=== PATIENT | male | born 1955 | race Caucasian/White ===

== ENCOUNTER 2016-08-06 14:03 | Emergency (ER) | payer MEDICARE, MEDICAID ==
[2016-02-05 13:26] VITALS: BMI 24.0
[~2016-08-06 14:03] MED LIST: DALIRESP500 MCG PO; HYDROCODONE-APA1 TAB PO; IPRAT-ALBUT 0.5-3 ML UPD; PRILOSEC20 MG PO; PROTONIX40 MG PO; PULMICORT0.25 MG/1 UPD; SINGULAIR10 MG PO; ULTRAM50 MG PO
[2016-08-06 15:07] LABS: BASOPHILS 2.3 % (0.0-2.0); EOSINOPHILS 1.5 % (0-7); HEMATOCRIT 30.6 % (42.0-54.0); HEMOGLOBIN 9.4 g/dL (13.5-17.5); IMMATURE GRANULOCYTES 0.2 % (0-5); LYMPHOCYTES 19.3 % (15-50); MCH 23.6 pg (26.0-34.0); MCHC 30.7 g/dL (31.0-37.0); MCV 76.9 fL (80.0-100.0); MEAN PLATELET VOLUME 8.9 fL (7.4-10.4); MONOCYTES 9.2 % (2-11); NEUTROPHILS 67.5 % (40-80); RBC 3.98 10x6/uL (4.20-6.10); RDW 19.2 % (11.5-14.5); WBC 9.9 10x3/uL (4.8-10.8)
[2016-08-06 15:12] LABS: PLATELET COUNT 371 10x3/uL (130-400)
[2016-08-06 15:28] LABS: ALKALINE PHOSPHATASE 151 U/L (46-116); ALT (SGPT) 40 U/L (10-68); BILIRUBIN - TOTAL 0.93 mg/dL (0.2-1.3); CALC OSMOLALITY 276 mosm/kg (275-300); CALCIUM 8.2 mg/dL (8.5-10.1); CARBON DIOXIDE 26.1 mmol/L (21.0-32.0); CHLORIDE - SERUM 104 mmol/L (98-107); CREATININE - SERUM 0.7 mg/dL (0.6-1.3); GLUCOSE 105 mg/dL (74-106); POTASSIUM - SERUM 4.1 mmol/L (3.5-5.1); PROTEIN - SERUM 7.7 g/dL (6.4-8.2); SODIUM 139 mmol/L (136-145); UREA NITROGEN 9 mg/dL (7-18); eGFR NON AFRICAN AMERICAN > 90 mL/min (90-120)
== END 2016-08-06 17:08 | disposition home or self-care (01) ==
LOC: D.ER 14:03
PROVIDERS: Emergency Medicine
DX: J44.1 Chronic obstructive pulmonary disease with (acute) exacerbation (principal); D64.9 Anemia, unspecified; J45.909 Unspecified asthma, uncomplicated; F17.200 Nicotine dependence, unspecified, uncomplicated

== ENCOUNTER 2016-08-11 21:36 | Inpatient (IN) | payer MEDICARE, MEDICAID ==
[~2016-08-11] VITALS: Ht 167.6 cm; Wt 59.1 kg
[2016-08-11 22:43] LABS: BASOPHILS 1.9 % (0.0-2.0); EOSINOPHILS 3.4 % (0-7); HEMATOCRIT 33.4 % (42.0-54.0); HEMOGLOBIN 10.5 g/dL (13.5-17.5); IMMATURE GRANULOCYTES 0.2 % (0-5); LYMPHOCYTES 26.1 % (15-50); MCH 23.6 pg (26.0-34.0); MCHC 31.4 g/dL (31.0-37.0); MCV 75.2 fL (80.0-100.0); MONOCYTES 11.4 % (2-11); PLATELET COUNT 314 10x3/uL (130-400); RBC 4.44 10x6/uL (4.20-6.10); RDW 19.5 % (11.5-14.5); WBC 6.2 10x3/uL (4.8-10.8)
[2016-08-11 22:56] LABS: ALKALINE PHOSPHATASE 149 U/L (46-116); ALT (SGPT) 40 U/L (10-68); BILIRUBIN - TOTAL 0.78 mg/dL (0.2-1.3); CALC OSMOLALITY 281 mosm/kg (275-300); CALCIUM 8.1 mg/dL (8.5-10.1); CARBON DIOXIDE 21.7 mmol/L (21.0-32.0); CHLORIDE - SERUM 106 mmol/L (98-107); CREATININE - SERUM 0.6 mg/dL (0.6-1.3); GLUCOSE 97 mg/dL (74-106); POTASSIUM - SERUM 3.8 mmol/L (3.5-5.1); PROTEIN - SERUM 8.4 g/dL (6.4-8.2); SODIUM 143 mmol/L (136-145); UREA NITROGEN 3 mg/dL (7-18); eGFR NON AFRICAN AMERICAN > 90 mL/min (90-120)
[2016-08-11 23:11] LABS: CREATINE KINASE 87 UL (21-232); MAGNESIUM - SERUM 1.7 mg/dL (1.8-2.4); PRO BNP 46 pg/mL (0-125)
[2016-08-11 23:13] LABS: TROPONIN-I < 0.017 ng/mL (0.000-0.060)
[2016-08-12 00:44] VITALS: BP 120/79; Ht 167.6 cm; Wt 59.1 kg
[2016-08-12 04:00] VITALS: BP 119/78; BP 99/62
--- NOTE | 2016-08-12 07:00 | NUR ---
PT REC'D FROM SASHA PARRISH. PT RESTING IN BED WITH IN BED. AAOX4. TALKATIVE. NO COMPLAINTS, BED LOW, CALL LIGHT IN REACH, CPOC.
[2016-08-12 08:10] VITALS: BP 100/63
--- NOTE | 2016-08-12 10:05 | NUR ---
MORNING MEDS PASSED. PT UP AMBULATING AROUND ROOM. STATES HE WAS WALKING OFF A CRAMP IN HIS LEFT LEG. EXPLAINED TO PT WHAT LIBRIUM IS AND HOW IT WORKS. PT STATES HE DOESNT THINK HE'LL NEED IT, BUT WILL TAKE IT JUST IN CASE. PT STATES THAT HE KNOWS HE DRINKS TOO MUCH, BUT IT IS BECAUSE HIS RECENTLY LOST HER MOM, 3 MONTHS AGO. STATES THEY WOULD LIKE TO TALK WITH SOMEONE ABOUT SOME INFO ON COUNSELING. TOLD THEM I WOULD HAVE TO SPEAK WITH THE COLOR CONTROL SUPERVISOR ABOUT THAT. NO QUESTION OR CONCERNS VOICED AT THIS TIME. BED LOW, CALL LIGHT IN REACH, WILL CPOC.
--- NOTE | 2016-08-12 11:30 | NUR ---
PT UP AMBULATING THROUGH HALLS. ESCORTED BACK TO ROOM BY SOFY ROBLES. PT ANXIOUS AND UNABLE TO FORM FULL SENTENCES. WHEN BACK IN ROOM PT BECAME INCREASINGLY AGGITATED. SOFY SHERMAN, IN ROOM ASSISTING WITH CARE AND ATTEMPTING TO CALM PT. WAS GOING TO PRN RONAL AND THEN PT SAID, "WAIT! BEFORE YOU GIVE THAT I HAVE TO TELL YOU SOMETHING. PLEASE SHUT THE DOOR. I BROUGHT HIM A BIG BEER AND HE DRANK IT ALL IN AN HOUR. HE BEGGED ME FOR ONE AND I COULDN'T HELP IT. I DIDN'T KNOW IF IT WOULD HURT HIM WITH THE MEDICINE YOU WERE GOING TO GIVE HIM, SO I THOUGHT I SHOULD TELL YOU. I'M PROBABLY IN TROUBLE." I TOLD HER THAT I WOULD HAVE TO TELL THE DOCTOR ABOUT THIS SO WE COULD PLAN HIS CARE ACCORDINGLY. 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 PITTMAN ON FLOOR AND AWARE OF SITUATION. BEER ORDERED QAC AND HS. DAVONN JOSEL ORDERED. BANANA BAGS ORDERED. BED LOW, CALL LIGHT IN REACH, WILL CPOC.
[2016-08-12 12:00] VITALS: BP 110/65
--- NOTE | 2016-08-12 12:00 | NUR ---
PATIENT SITTING UO IN CHAIR. IN PATIENT'S ROOM. PATIENT IS VERY ANXIOUS ACTING AND UNABLE TO SIT STILL IN HIS CHAIR. PATIENT KEEPS APOLOGIZING TO THE STAFF THAT EVERYTHING HAS BEEN "HIS FAULT" AND WHY IS HE "LIKE THIS". PATIENT IS DISORIENTED AT PRESENT TIME TO HIS SITUATION AND WHERE HE IS AT. REORIENTED PATIENT TO PLACE AND SITUATION. VERBALIZED TO PATIENT THE IMPORTANCE OF WHY HE IS HERE IN THE HOSPITAL AND THE IMPORTANCE OF FOLLOWING THE PHYSICIAN'S ORDERS. PATIENT VERBALIZED UNDERSTANDING. PATIENT AGREED TO GET BACK IN HIS BED AND STATED SHE WOULD STAY WITH HIM AT THE PRESENT TIME. AND PATIENT BOTH SMELLED OF ALCOHOL. DENIES BRINGING PATIENT ALCOHOL IN ROOM. PATIENT KEPT STATING, "DO YOU KNOW I KILLED PEOPLE IN [facility]"? KEPT SAYING, "DARYN BE QUIET OR THEY WILL SEDATE YOU". VERBALIZED TO THAT WE ARE NOT HERE TO SEDATE PATIENT, BUT TO HELP HIM THROUGH THIS PROCESS AND TO HELP HIM GET BETTER WHILE HE IS HERE IN THE HOSPITAL. CALL LIGHT IN PATIENT'S REACH. WILL MONITOR.
[2016-08-12 15:37] VITALS: BP 95/53
--- NOTE | 2016-08-12 17:00 | NUR ---
ALERTED BY PT THAT PT HAD PULLED IV OUT IN HIS SLEEP. IV DELAYED AND TUBING DISCONNECTED WITH CATHETER INTACT. WILL ATTEMPT TO RESITE.
--- NOTE | 2016-08-12 18:15 | NUR ---
SUPPLIED PT WITH 1 12OZ CAN OF BUD LIGHT.
--- NOTE | 2016-08-12 18:43 | NUR ---
X3 ATTEMPTS TO RESITE IV. UNSUCCESSFUL. SOFY SHERMAN, X2 UNSUCCESSFUL ATTEMPTS. SOFY ROBLES, X2 ATTEMPTS, SUCCESSFULLY RESITED TO LEFT HAND WITH 22 GUAGE IV CATHETER.
[2016-08-12 18:47] LABS: % SATURATION 3 % (15-55); IRON 16 ug/dl (35-150); TOTAL IRON BIND CAPACITY 444 ug/dl (260-445); UNSAT IRON BIND CAPACITY 428 ug/dl (150-375)
[2016-08-12 20:43] VITALS: BP 114/62
--- NOTE | 2016-08-13 01:31 | NUR ---
PT IV HAD TO BE RESITED D/T HIM PULLING IT OUT. IV WAS RESITED TO LEFT HAND. X 1 ATTEMPT WHICH WAS SUCCESSFUL. NO C/O NOTED OR VOICED. C/L IN REACH AT BEDSIDE.
--- NOTE | 2016-08-13 02:09 | NUR ---
RESTING WITH EYES CLOSED, NO DISTRESS NOTED, CL IN REACH
--- NOTE | 2016-08-13 03:24 | NUR ---
RESTING WELL AT THIS TIME WITH NO C/O NOTED. C/L IN REACH AT BEDSIDE.
[2016-08-13 06:27] LABS: BASOPHILS 0.5 % (0.0-2.0); EOSINOPHILS 1.8 % (0-7); HEMATOCRIT 28.4 % (42.0-54.0); HEMOGLOBIN 8.8 g/dL (13.5-17.5); IMMATURE GRANULOCYTES 0.1 % (0-5); LYMPHOCYTES 10.4 % (15-50); MCH 23.3 pg (26.0-34.0); MCV 75.1 fL (80.0-100.0); MEAN PLATELET VOLUME 9.1 fL (7.4-10.4); MONOCYTES 6.3 % (2-11); NEUTROPHILS 80.9 % (40-80); RBC 3.78 10x6/uL (4.20-6.10); RDW 19.6 % (11.5-14.5)
[2016-08-13 06:28] LABS: PLATELET COUNT 210 10x3/uL (130-400); WBC 8.7 10x3/uL (4.8-10.8)
[2016-08-13 06:38] LABS: ALBUMIN 2.5 g/dL (3.4-5.0); ALKALINE PHOSPHATASE 156 U/L (46-116); ALT (SGPT) 30 U/L (10-68); CALC OSMOLALITY 282 mosm/kg (275-300); CALCIUM 7.8 mg/dL (8.5-10.1); CARBON DIOXIDE 24.9 mmol/L (21.0-32.0); CHLORIDE - SERUM 109 mmol/L (98-107); CREATININE - SERUM 0.7 mg/dL (0.6-1.3); GLUCOSE 92 mg/dL (74-106); POTASSIUM - SERUM 4.1 mmol/L (3.5-5.1); SODIUM 143 mmol/L (136-145); eGFR NON AFRICAN AMERICAN > 90 mL/min (90-120)
[2016-08-13 06:40] LABS: UREA NITROGEN 8 mg/dL (7-18)
--- NOTE | 2016-08-13 07:00 | NUR ---
PT REC'D FROM SASHA HIDALGO. PT RESTING IN BED WITH AMBULATING AROUND ROOM. EYES CLOSED WITH RESP EVEN AND UNLABORED. NO SIGNS OF DISTRESS. REQUESTING TYLENOL AT THIS TIME. STATED, "HE'S HURTING REALLY BAD." I STATED WELL UNTIL HE ASKS FOR IT I CAN'T GIVE HIM ANYTHING, AND I DON'T HAVE AN ORDER FOR IT. BED LOW, CALL LIGHT IN REACH, WILL CPOC.
[2016-08-13 08:04] VITALS: BP 104/68
--- NOTE | 2016-08-13 09:22 | NUR ---
MORNING MEDS PASSED AT THIS TIME. PT SITTING UP ON SIDE OF BED. ASKED PT ABOUT PAIN LEVEL AND HE DID STATE HE HAD A 7/10 PAIN LEVEL THAT WAS ALL OVER HIS BODY. STATED I WOULD TRY AND GET HIM SOMETHING TO HELP HIM RELIEVE HIS PAIN. BED LOW, CALL LIGHT IN REACH, WILL CPOC.
--- NOTE | 2016-08-13 10:15 | NUR ---
PRN TYLENOL ORDERED FOR PAIN OR FEVER. 02/12 PAIN GENERALIZED. WILL REASSESS.
--- NOTE | 2016-08-13 11:44 | NUR ---
PATIENT IN LOW MILAN POSITION RESTING WITH EYES CLOSED. RESPIRATIONS EVEN AND UNLABORED. PRESENT. SIDE RAILS UP X2. BED IN LOW POSITION. CALL LIGHT IN REACH.
[2016-08-13 11:56] VITALS: BP 98/68
[2016-08-13 15:59] VITALS: BP 130/59
--- NOTE | 2016-08-13 18:47 | NUR ---
PRN TYLENOL ADMINISTERED PER PT COMPLAINTS OF 7/10 GENERALIZED PAIN. PT STATES HE IS HAVING A HARD TIME BREATHING, BUT IS SHOWING NO SIGNS OF ANY DISTRESS. EXPIRATORY WHEEZES AUSCULTATED BILAT THROUGHOUT LUNG FABIAN. PT WILL BE RECIEVING BREATHING TX AT 1900 AND TOLD PT THAT.
[2016-08-13 19:00] VITALS: BP 109/69
--- NOTE | 2016-08-13 19:00 | NUR ---
REC'D N BED AWAKE AND ALERT. RESP EVEN AND UNLABORED WITH NO DISTRESS NOTED. CAN VOICE NEEDS AND WANTS. AMBULATE WITH SLOW AND UNSTEAD GAIT. ASSESSMENT COMPLETED. WILL CONTINUE TO OBSERVE FOR NEEDS. C/L UN REACH AT BEDSIDE.
[2016-08-14] VITALS: BP 108/68
[2016-08-14 04:00] VITALS: BP 105/72
[2016-08-14 05:23] LABS: BASOPHILS 0.4 % (0.0-2.0); EOSINOPHILS 2.5 % (0-7); HEMATOCRIT 26.8 % (42.0-54.0); HEMOGLOBIN 8.4 g/dL (13.5-17.5); IMMATURE GRANULOCYTES 0.3 % (0-5); LYMPHOCYTES 16.4 % (15-50); MCH 23.4 pg (26.0-34.0); MCHC 31.3 g/dL (31.0-37.0); MCV 74.7 fL (80.0-100.0); MEAN PLATELET VOLUME 9.3 fL (7.4-10.4); MONOCYTES 9.8 % (2-11); NEUTROPHILS 70.6 % (40-80); PLATELET COUNT 146 10x3/uL (130-400); RBC 3.59 10x6/uL (4.20-6.10); RDW 19.6 % (11.5-14.5); WBC 7.3 10x3/uL (4.8-10.8)
[2016-08-14 06:06] LABS: % SATURATION 39 % (15-55); IRON 143 ug/dl (35-150); TOTAL IRON BIND CAPACITY 366 ug/dl (260-445); UNSAT IRON BIND CAPACITY 223 ug/dl (150-375)
[2016-08-14 06:19] LABS: ALBUMIN 2.4 g/dL (3.4-5.0); ALKALINE PHOSPHATASE 102 U/L (46-116); ALT (SGPT) 24 U/L (10-68); CALC OSMOLALITY 275 mosm/kg (275-300); CARBON DIOXIDE 25.7 mmol/L (21.0-32.0); CHLORIDE - SERUM 106 mmol/L (98-107); CREATININE - SERUM 0.7 mg/dL (0.6-1.3); FERRITIN 27 ng/mL (3-244); GLUCOSE 88 mg/dL (74-106); POTASSIUM - SERUM 3.6 mmol/L (3.5-5.1); PROTEIN - SERUM 6.7 g/dL (6.4-8.2); SODIUM 140 mmol/L (136-145); THYROID STIMULATING HORMONE 0.64 uIU/mL (0.36-3.74); UREA NITROGEN 6 mg/dL (7-18); eGFR NON AFRICAN AMERICAN > 90 mL/min (90-120)
--- NOTE | 2016-08-14 08:00 | NUR ---
PT AWAKE AND ALERT IN ROOM NO ACUTE DISTRESS NOTED VOICES ALL NEEDS TO STAFF. AMBUALTES WELL WITH NO DIFFICULTY. SPOUSE AT SIDE
[2016-08-14 08:07] VITALS: BP 148/82
--- NOTE | 2016-08-14 10:00 | NUR ---
PT TALKED TO THIS NURSE ABOUT BEING AN ALCOHOLIC AND NEEDING TO HAVE HELP TO STOP DRINKING. 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
--- NOTE | 2016-08-14 10:44 | NUR ---
Patient Name: DARYN AGUERO Admission Status: ER Accout number: [id number] Admission Date: 08-11-2016 : 1955 Admission Diagnosis: Attending: ELIZABETH Current LOS: 3 Anticipated DC Date: 08-16-2016 Planned Disposition: Home or Self Care Primary Insurance: [employer] ADV Discharge Planning Comments: CM MET WITH PATIENT REGARDING D/C NEEDS AND PLANS. PATIENT STATED HE LIVES WITH HIS (SIDDHARTHA) AND SHE WILL PICK HIM UP AT DISCHARGE. PATIENT STATED THERE ARE NO STEPS OR STAIRS AT HIS HOME. PATIENT STATED HE IS INDEPENDENT WITH HIS CARE AND HAS NO DME AT HOME. PATIENT DOES NOT HAVE A PCP AND USES [facility] ON [address] FOR HIS PHARMACY. PATIENT IS REFUSING HOME HEALTH. CM WILL CONTINUE TO FOLLOW PATIENT WITH D/C NEEDS AND PLANS. PCP NONE [facility] [address] [phone] SIDDHARTHA (SPOUSE) [phone] Milk Processing Worker: Marlene Shore Is the patient Alert and Oriented? Yes 0 * How many steps to enter\exit or inside your home? 0 0 * PCP NONE 0 * Pharmacy [facility] [address] * Preadmission Environment Home with Family 0 * ADLs Independent 0 * List name and contact numbers for known caregivers / representatives who currently or will assist patient after discharge: SIDDHARTHA (SPOUSE) [phone] * Community resources currently utilized None 0 * Additional services required to return to the preadmission environment? Yes 0 * Can the patient safely return to the preadmission environment? Yes 0 * Has this patient been hospitalized within the prior 30 days at any hospital? No 0 Grand Total: 0
[2016-08-14] MEDS ORDERED: THERAGRAN M [BK1 TAB PO (11:25)
[2016-08-14] MEDS ORDERED: FOLIC ACID1 MG PO (11:25)
[2016-08-14] MEDS ORDERED: THIAMINE HCL50 MG PO (11:25)
[2016-08-14] MEDS ORDERED: LEVAQUIN750 MG PO (11:26)
[2016-08-14] MEDS ORDERED: PREDNISONE10 MG PO (11:27)
--- NOTE | 2016-08-14 11:59 | NUR ---
CM REASSESSMENT NOTE: PATIENT IS DISCHARGING BACK TO [facility] TONDAY BY AMBULANCE TO A SKILLED BED PER JUDY AT [facility]. TRISHA WITH APS WAS NOTIFIED OF DISCHARGE TO [facility].
[2016-08-14 12:09] VITALS: BP 128/86
--- NOTE | 2016-08-14 12:13 | NUR ---
CM REASSESSMENT NOTE: PATIENT IS DISCHARGING HOME TODAY- IS DRIVING HIM HOME. PATIENT HAS REFUSED HOME HEALTH. STATED SHE TAKES CARE OF HIM AND THAT HOME HEALTH IS NOT NEEDED.
--- NOTE | 2016-08-14 13:41 | NUR ---
PT TO BE DISCHARGED AT THIS [facility] PIV D/C WITH TIP INTACT ALL DISCHARGE INSTRUCTIONS GIVEN AND WELL FOLLOW UP APPTS. STATES UNDERSTANDING
== END 2016-08-14 14:16 | disposition home or self-care (01) | DRG 195 ==
LOC: D.ER 21:36 → D.MS 23:48
PROVIDERS: Emergency Medicine; ADMIT Family Medicine Adult Medicine
DX: J18.9 Pneumonia, unspecified organism (principal); F10.129 Alcohol abuse with intoxication, unspecified; Y90.8 Blood alcohol level of 240 mg/100 ml or more; R41.82 Altered mental status, unspecified; J43.9 Emphysema, unspecified; D64.9 Anemia, unspecified

== ENCOUNTER 2016-08-22 03:25 | Emergency (ER) | payer MEDICARE, MEDICAID ==
[2016-08-12 00:44] VITALS: BMI 21.0
[~2016-08-22 03:25] MED LIST changes: +FOLIC ACID1 MG PO; +LEVAQUIN750 MG PO; +PREDNISONE10 MG PO; +THERAGRAN M [BK1 TAB PO; +THIAMINE HCL50 MG PO
[2016-08-22 04:12] LABS: BASOPHILS 1.4 % (0.0-2.0); EOSINOPHILS 5.3 % (0-7); HEMATOCRIT 28.2 % (42.0-54.0); HEMOGLOBIN 8.8 g/dL (13.5-17.5); IMMATURE GRANULOCYTES 0.2 % (0-5); LYMPHOCYTES 24.7 % (15-50); MCH 23.7 pg (26.0-34.0); MCHC 31.2 g/dL (31.0-37.0); MCV 75.8 fL (80.0-100.0); MEAN PLATELET VOLUME 8.9 fL (7.4-10.4); NEUTROPHILS 51.4 % (40-80); PLATELET COUNT 133 10x3/uL (130-400); RBC 3.72 10x6/uL (4.20-6.10); RDW 21.5 % (11.5-14.5); WBC 6.2 10x3/uL (4.8-10.8)
[2016-08-22 04:21] LABS: CALC OSMOLALITY 279 mosm/kg (275-300); CALCIUM 8.4 mg/dL (8.5-10.1); CARBON DIOXIDE 25.7 mmol/L (21.0-32.0); CHLORIDE - SERUM 107 mmol/L (98-107); CREATININE - SERUM 0.8 mg/dL (0.6-1.3); GLUCOSE 88 mg/dL (74-106); POTASSIUM - SERUM 3.5 mmol/L (3.5-5.1); SODIUM 142 mmol/L (136-145); UREA NITROGEN 6 mg/dL (7-18); eGFR NON AFRICAN AMERICAN > 90 mL/min (90-120)
== END 2016-08-22 06:19 | disposition home or self-care (01) ==
LOC: D.ER 03:25
PROVIDERS: Emergency Medicine
DX: S00.93XA Contusion of unspecified part of head, initial encounter (principal); W22.8XXA Striking against or struck by other objects, initial encounter; Y93.89 Activity, other specified; Y92.89 Other specified places as the place of occurrence of the external cause; S01.01XA Laceration without foreign body of scalp, initial encounter; F10.129 Alcohol abuse with intoxication, unspecified; J45.909 Unspecified asthma, uncomplicated; J44.9 Chronic obstructive pulmonary disease, unspecified; F17.200 Nicotine dependence, unspecified, uncomplicated

== ENCOUNTER 2016-12-07 17:09 | Emergency (ER) | payer MEDICARE, MEDICAID ==
[2016-08-12 00:44] VITALS: BMI 21.0
[2016-12-07 17:41] LABS: UDS - AMPHET NEGATIVE QUAL (NEGATIVE); UDS - BARB NEGATIVE QUAL (NEGATIVE); UDS - BENZO NEGATIVE QUAL (NEGATIVE); UDS - COCAINE NEGATIVE QUAL (NEGATIVE); UDS - METH NEGATIVE QUAL (NEGATIVE); UDS - OPIATE NEGATIVE QUAL (NEGATIVE); UDS - PCP NEGATIVE QUAL (NEGATIVE); UDS - THC NEGATIVE QUAL (NEGATIVE)
[2016-12-07 17:41] LABS: APPEARANCE HAZY (CLEAR); COLOR YELLOW (YELLOW); LEUKOCYTE ESTERASE 1+ (NEGATIVE)
[2016-12-07 17:42] LABS: BILIRUBIN NEGATIVE (NEGATIVE); GLUCOSE NEGATIVE (NEGATIVE); KETONE NEGATIVE (NEGATIVE); NITRITE NEGATIVE (NEGATIVE); PROTEIN TRACE mg/dL (NEGATIVE); UROBILINOGEN NORMAL (NORMAL)
[2016-12-07 17:45] LABS: BACTERIA MODERATE /hpf (NONE SEEN); EPITHELIAL CELLS 0-5 /hpf (0-5); RED CELLS - URINE 0-5 /hpf (0-5)
[2016-12-07 17:57] LABS: BASOPHILS 2.6 % (0-2); EOSINOPHILS 2.1 % (0-7); HEMATOCRIT 32.5 % (42.0-54.0); HEMOGLOBIN 10.1 g/dL (13.5-17.5); IMMATURE GRANULOCYTES 0.3 % (0-5); LYMPHOCYTES 20.5 % (15-50); MCH 23.5 pg (26.0-34.0); MCHC 31.1 g/dL (31.0-37.0); MCV 75.6 fL (80.0-100.0); MEAN PLATELET VOLUME 9.5 fL (7.4-10.4); MONOCYTES 11.3 % (2-11); NEUTROPHILS 63.2 % (40-80); PLATELET COUNT 141 10x3/uL (130-400); RDW 19.4 % (11.5-14.5); WBC 7.8 10x3/uL (4.8-10.8)
[2016-12-07 18:12] LABS: ALBUMIN 2.7 g/dL (3.4-5.0); ALKALINE PHOSPHATASE 141 U/L (46-116); ALT (SGPT) 41 U/L (10-68); BILIRUBIN - TOTAL 1.56 mg/dL (0.2-1.3); CALC OSMOLALITY 276 mosm/kg (275-300); CALCIUM 8.1 mg/dL (8.5-10.1); CARBON DIOXIDE 25.5 mmol/L (21.0-32.0); CHLORIDE - SERUM 105 mmol/L (98-107); CREATININE - SERUM 0.7 mg/dL (0.6-1.3); GLUCOSE 94 mg/dL (74-106); POTASSIUM - SERUM 4.2 mmol/L (3.5-5.1); PROTEIN - SERUM 8.6 g/dL (6.4-8.2); SODIUM 140 mmol/L (136-145); UREA NITROGEN 7 mg/dL (7-18); eGFR NON AFRICAN AMERICAN > 90 mL/min (90-120)
== END 2016-12-07 18:54 | disposition home or self-care (01) ==
LOC: D.ER 17:09
PROVIDERS: Emergency Medicine
DX: G40.409 Other generalized epilepsy and epileptic syndromes, not intractable, without status epilepticus (principal); Z91.14 Patient's other noncompliance with medication regimen; F10.129 Alcohol abuse with intoxication, unspecified; D64.9 Anemia, unspecified; J44.9 Chronic obstructive pulmonary disease, unspecified

== ENCOUNTER 2016-12-10 16:41 | Emergency (ER) | payer MEDICARE, MEDICAID ==
[2016-08-12 00:44] VITALS: BMI 21.0
[2016-12-10 18:01] LABS: BASOPHILS 1.7 % (0-2); EOSINOPHILS 2.4 % (0-7); HEMATOCRIT 29.6 % (42.0-54.0); HEMOGLOBIN 9.2 g/dL (13.5-17.5); IMMATURE GRANULOCYTES 0.4 % (0-5); LYMPHOCYTES 20.3 % (15-50); MCH 23.2 pg (26.0-34.0); MCHC 31.1 g/dL (31.0-37.0); MCV 74.7 fL (80.0-100.0); MEAN PLATELET VOLUME 9.3 fL (7.4-10.4); MONOCYTES 9.1 % (2-11); NEUTROPHILS 66.1 % (40-80); PLATELET COUNT 123 10x3/uL (130-400); RBC 3.96 10x6/uL (4.20-6.10); RDW 19.3 % (11.5-14.5); WBC 8.3 10x3/uL (4.8-10.8)
[2016-12-10 18:15] LABS: ALBUMIN 2.6 g/dL (3.4-5.0); ALKALINE PHOSPHATASE 160 U/L (46-116); ALT (SGPT) 46 U/L (10-68); BILIRUBIN - TOTAL 1.17 mg/dL (0.2-1.3); CALC OSMOLALITY 282 mosm/kg (275-300); CALCIUM 7.6 mg/dL (8.5-10.1); CARBON DIOXIDE 27.2 mmol/L (21.0-32.0); CHLORIDE - SERUM 108 mmol/L (98-107); CREATININE - SERUM 0.8 mg/dL (0.6-1.3); GLUCOSE 101 mg/dL (74-106); POTASSIUM - SERUM 3.9 mmol/L (3.5-5.1); PROTEIN - SERUM 8.2 g/dL (6.4-8.2); SODIUM 143 mmol/L (136-145); UREA NITROGEN 7 mg/dL (7-18); eGFR NON AFRICAN AMERICAN > 90 mL/min (90-120)
[2016-12-10 18:21] LABS: MAGNESIUM - SERUM 1.7 mg/dL (1.8-2.4)
== END 2016-12-10 21:05 | disposition home or self-care (01) ==
LOC: D.ER 16:41
PROVIDERS: Emergency Medicine
DX: F10.129 Alcohol abuse with intoxication, unspecified (principal); F17.200 Nicotine dependence, unspecified, uncomplicated; J44.9 Chronic obstructive pulmonary disease, unspecified

== ENCOUNTER 2017-01-19 05:30 | Inpatient (IN) | payer MEDICARE, MEDICAID ==
[2017-01-19] VITALS (39 sets, daily range): BP systolic 89–129; BP diastolic 49–91; BMI 24.6
[~2017-01-19] VITALS: Ht 167.6 cm; Wt 95.7 kg
[2017-01-19 06:10] LABS: UDS - AMPHET NEGATIVE QUAL (NEGATIVE); UDS - BARB NEGATIVE QUAL (NEGATIVE); UDS - BENZO NEGATIVE QUAL (NEGATIVE); UDS - COCAINE NEGATIVE QUAL (NEGATIVE); UDS - METH NEGATIVE QUAL (NEGATIVE); UDS - OPIATE NEGATIVE QUAL (NEGATIVE); UDS - PCP NEGATIVE QUAL (NEGATIVE); UDS - THC NEGATIVE QUAL (NEGATIVE)
[2017-01-19 06:24] LABS: APPEARANCE HAZY (CLEAR); COLOR DK YELLOW (YELLOW); LEUKOCYTE ESTERASE 1+ (NEGATIVE); SPECIFIC GRAVITY 1.015 (1.005-1.020)
[2017-01-19 06:25] LABS: BILIRUBIN NEGATIVE (NEGATIVE); GLUCOSE NEGATIVE (NEGATIVE); KETONE NEGATIVE (NEGATIVE); NITRITE NEGATIVE (NEGATIVE); PROTEIN NEGATIVE (NEGATIVE); UROBILINOGEN NORMAL (NORMAL)
[2017-01-19 06:27] LABS: BACTERIA MODERATE /hpf (NONE SEEN); MUCUS <1+ /lpf (NONE SEEN); RED CELLS - URINE 0-5 /hpf (0-5)
[2017-01-19 06:29] LABS: HEMATOCRIT 23.6 % (42.0-54.0); MCHC 30.9 g/dL (31.0-37.0); RBC 2.81 10x6/uL (4.20-6.10); RDW 28.7 % (11.5-14.5); WBC 36.7 10x3/uL (4.8-10.8)
[2017-01-19 06:30] LABS: HEMOGLOBIN 7.3 g/dL (13.5-17.5); PLATELET COUNT 91 10x3/uL (130-400)
[2017-01-19 06:48] LABS: ALBUMIN 1.7 g/dL (3.4-5.0); ANION GAP 21.4 mmol/L (8-16); BILIRUBIN - TOTAL 7.54 mg/dL (0.2-1.3); CALCIUM 7.1 mg/dL (8.5-10.1); POTASSIUM - SERUM 5.4 mmol/L (3.5-5.1); PROTEIN - SERUM 6.2 g/dL (6.4-8.2)
[2017-01-19 06:50] LABS: LYMPHOCYTES 5 % (15-50); MONOCYTES 3 % (2-11); NEUTROPHILS 90 % (40-80); PLATELET ESTIMATE DECREASED; POLYCHROMASIA OCC
[2017-01-19 06:59] LABS: MAGNESIUM - SERUM 1.4 mg/dL (1.8-2.4)
[2017-01-19 07:30] LABS: APTT 21.3 SECONDS (22.8-39.4); INR 2.35 (0.85-1.17); PROTIME 25.8 SECONDS (11.6-15.0)
--- NOTE | 2017-01-19 12:00 | NUR ---
PT ARRIVED TO UNIT AT THIS TIME PT IS SEDATED AND ON VENT. MOVES EXTREMITIES. NOTED HAS BLACK LIQUID STOOL. WILL CALL PHYSICIANS TO NOTIFY OF PT ARRIVAL.
--- NOTE | 2017-01-19 12:17 | NUR ---
CALLED DR LUNSFORD TO NOTIFY THAT PT IS HER PER ORDERS.
--- NOTE | 2017-01-19 12:50 | NUR ---
PTS HERE. UPDATE GIVEN. CONSENTS SIGNED FOR EGD WITH TIVA. WILL CONTINUE PLAN OF CARE.
--- NOTE | 2017-01-19 13:11 | NUR ---
NOTED DR DESAI AND DR RILEY HAVE BOTH SPOKEN WITH PTS . ORDERS RECIEVED.
[2017-01-19 13:41] LABS: BASOPHILS 0.2 % (0-2); EOSINOPHILS 0 % (0-7); IMMATURE GRANULOCYTES 0.5 % (0-5); LYMPHOCYTES 8.2 % (15-50); MCH 26.9 pg (26.0-34.0); MCHC 32.3 g/dL (31.0-37.0); MCV 83.3 fL (80.0-100.0); MONOCYTES 2.1 % (2-11); RBC 2.64 10x6/uL (4.20-6.10); RDW 23.2 % (11.5-14.5)
[2017-01-19 13:46] LABS: WBC 9.4 10x3/uL (4.8-10.8)
[2017-01-19 13:48] LABS: HEMOGLOBIN 7.1 g/dL (13.5-17.5); PLATELET COUNT 46 10x3/uL (130-400)
--- NOTE | 2017-01-19 14:07 | NUR ---
PATIENT WAS ADMITTED THRU THE ER THIS AM. THE WAS QUITE DISTRAUGHT. CM UNABLE TO SPEAK WITH HER DURING THE INITIAL VISIT.
--- NOTE | 2017-01-19 14:23 | NUR ---
SPOKE WITH DR HUNT NOTED ORDER FOR H&H Q6H AND IF HCT IS BELOW 28 TO GIVE 1U PRBC AND IF HCT IS BELOW 26 TO GIVE 2U PRBC.
--- NOTE | 2017-01-19 14:53 | NUR ---
SPOKE WITH DR PITTMAN, NOTED ORDER FOR PRN LEVOFED. TITRATE TO KEEP MAP ABOVE 60.
--- NOTE | 2017-01-19 15:02 | NUR ---
OGT PLACED. WAS REMOVED DURING EGD AND REQUIRED REPLACING. PLACEMENT VERIFICATION VIA AUSCULTATION AND SUCTION. STAT CHEST XRAY ORDERED AT THIS TIE PER DR HUNT ORDERS FOR VERIFY PLACEMENT. WILL CONTINUE PLAN OF CARE.
--- NOTE | 2017-01-19 16:29 | NUR ---
CAUTERIZED AVM WITH GOLD PROBE.
--- NOTE | 2017-01-19 17:37 | NUR ---
TOTAL BED CHANGE NOTED AT THIS TIME, INCONTINENT BOWEL MOVEMENT. LOOSE BLACK BM. MALONE CARE PROVIDED VIA TOTAL ASSIST X 2 PERSON. ALSO AT THIS TIME CVL DRESSING CHANGE PROVIDED. WILL CONTINUE PLAN OF CARE.
--- NOTE | 2017-01-19 19:00 | NUR ---
SHIFT ASSESSMENT COMPLETE, SEE FLOWSHEET. PATIENT SEDATED AND ON VENT, WILL OPEN EYEN TO PAINFUL STIMULI. VSS, PATIENT ON VASOPRESSORS FOR BP SUPPORT-SEE IV DRIPS. PATIENT RECEIVING UNIT OF PRBC'S AT THIS TIME. HAVING DARK BLOODY STOOLS, WILL MONITOR.
--- NOTE | 2017-01-19 20:30 | NUR ---
PATIENT HAD DARK BLOODY STOOL, LINEN CHANGED AND CLEANED UP.
--- NOTE | 2017-01-19 21:00 | NUR ---
FAMILY AT BEDSIDE, UPDATE GIVEN. CALLED, UPDATE GIVEN.
--- NOTE | 2017-01-19 21:30 | NUR ---
UNIT OF PRBC COMPLETE, WILL FLUSH AND RECHECK LAB LEVELS.
--- NOTE | 2017-01-19 23:00 | NUR ---
REASSESSMENT COMPLETE, SEE FLOWSHEET FOR DETAILS. VSS.
[2017-01-20] VITALS (71 sets, daily range): BP systolic 91–128; BP diastolic 58–90; Ht 167.6 cm; Wt 95.7 kg
--- NOTE | 2017-01-20 00:30 | NUR ---
PATIENT HAD LARGE DARK BLOODY STOOL. BATH GIVEN AND COMPLETE LINEN CHANGE PERFORMED.
--- NOTE | 2017-01-20 03:00 | NUR ---
REASSESSMENT COMPLETE, NO ACUTE CHANGES, SEE FLOWSHEET
[2017-01-20 04:47] LABS: BASOPHILS 0.1 % (0-2); EOSINOPHILS 0.2 % (0-7); IMMATURE GRANULOCYTES 0.9 % (0-5); LYMPHOCYTES 5.7 % (15-50); MCH 27.8 pg (26.0-34.0); MCHC 32.9 g/dL (31.0-37.0); MCV 84.5 fL (80.0-100.0); MONOCYTES 4.2 % (2-11); NEUTROPHILS 88.9 % (40-80); RDW 20.2 % (11.5-14.5)
[2017-01-20 04:55] LABS: HEMOGLOBIN 10.2 g/dL (13.5-17.5); PLATELET COUNT 49 10x3/uL (130-400); RBC 3.67 10x6/uL (4.20-6.10); WBC 11.8 10x3/uL (4.8-10.8)
[2017-01-20 05:03] LABS: INR 1.55 (0.85-1.17); PROTIME 18.5 SECONDS (11.6-15.0)
[2017-01-20 05:19] LABS: ALKALINE PHOSPHATASE 91 U/L (46-116); ALT (SGPT) 27 U/L (10-68); AMYLASE - SERUM 42 U/L (25-115); CHLORIDE - SERUM 109 mmol/L (98-107); CKMB 1.2 U/L (0.0-3.6); LIPASE 192 U/L (73-393); PHOSPHOROUS 3.2 mg/dL (2.5-4.9); PRO BNP 335 pg/mL (0-125); PROTEIN - SERUM 6.2 g/dL (6.4-8.2); SODIUM 142 mmol/L (136-145); THYROID STIMULATING HORMONE 0.25 uIU/mL (0.36-3.74); TROPONIN-I 0.026 ng/mL (0.000-0.060); UREA NITROGEN 36 mg/dL (7-18)
[2017-01-20 05:20] LABS: CALC OSMOLALITY 296 mosm/kg (275-300); CREATININE - SERUM 1.1 mg/dL (0.6-1.3); GLUCOSE 201 mg/dL (74-106); MAGNESIUM - SERUM 2.9 mg/dL (1.8-2.4); POTASSIUM - SERUM 3.1 mmol/L (3.5-5.1); eGFR NON AFRICAN AMERICAN 73 mL/min (90-120)
[2017-01-20 05:21] LABS: CALCIUM 6.7 mg/dL (8.5-10.1)
--- NOTE | 2017-01-20 05:39 | NUR ---
PATIENTS CORRECTED CALCIUM 8.3
--- NOTE | 2017-01-20 06:00 | NUR ---
PATIENT HAD MEDIUM BM, DARK BLOODY STOOL. CLEANED UP AND LINENS CHANGED.
--- NOTE | 2017-01-20 08:15 | NUR ---
NO ACUTE DISTRESS NOTED. PT DOES NOT FOLLOW SIMPLE COMMANDS. LEVOFED TITRATED TO MEET GUIDELINE PARAMETERS. TURNED Q2H. WILL CONTINUE PLAN OF CARE.
--- NOTE | 2017-01-20 10:17 | NUR ---
SPOKEN WITH PTS AND FAMILY (MOM, DAD, BROTHER) AND THE FAMILY HAVE DECIDED TOGETHER TO MAKE PT A DNR; HOWEVER, THEY STILL WANT TO CONTINUE CURRENT MEDICAL CARE SUCH VENT. THEY WISH TO HAVE AN EEG DONE ON SUNDAY AND WISH TO MAKE ANY FURTHER DECISIONS BASED ON THOSE RESULTS. DR PITTMAN HAS ALSO SPOKEN WITH FAMILY AND PTS AT THIS TIME. WILL RESPECT WISHES.
--- NOTE | 2017-01-20 12:43 | NUR ---
FAMILY AT BEDSIDE OF PT. NO ACUTE DISTRESS NOTED. NO CHANGE. PT TURNED Q2H. WILL CONTINUE PLAN OF CARE.
--- NOTE | 2017-01-20 14:44 | NUR ---
INCONTINENT BOWEL MOVEMENT NOTED AT THIS TIME, LOOSE DARK GREEN. MALONE CARE PROVIDED VIA TOTAL ASSIST X 2 PERSON WITH PARTIAL LINEN CHANGE. NO ACUTE DISTRESS NOTED. WILL CONTINUE PLAN OF CARE.
--- NOTE | 2017-01-20 16:45 | NUR ---
NO ACUTE DISTRESS NOTED. NO CHANGE. PT NOTED DOES NOT FOLLOW SIMPLE COMMANDS, BUT DOES MOVE EXTREMITIES AT TIMES. WILL CONTINUE PLAN OF CARE.
--- NOTE | 2017-01-20 18:12 | NUR ---
INCONTINENT BOWEL MOVEMENT NOTED AT THIS TIME. MALONE CARE PROVIDED VIA TOTAL ASSIST X 2 PERSON. PT TURNED Q2H. NO ACUTE DISTRESS NOTED. WILL CONTINUE PLAN OF CARE.
--- NOTE | 2017-01-20 19:00 | NUR ---
SHIFT ASSESSMENT COMPLETE, SEE FLOWSHEET FOR DETIALS. PATIENT SEDATED AND ON VENT. VSS. RR EVEN AND NONLABORED. S1S2. MALONE DRAINING TO GRAVITY. VASOPRESSORS FOR BP SUPPORT, SEE IV FLOWSHEET. ORAL CARE GIVEN.
--- NOTE | 2017-01-20 21:00 | NUR ---
FAMILY AT BEDSIDE, UPDATE GIVEN.
[2017-01-20 22:02] LABS: BASOPHILS 0.3 % (0-2); EOSINOPHILS 1.4 % (0-7); HEMATOCRIT 28.8 % (42.0-54.0); HEMOGLOBIN 9.5 g/dL (13.5-17.5); IMMATURE GRANULOCYTES 0.5 % (0-5); LYMPHOCYTES 8.5 % (15-50); MONOCYTES 8.7 % (2-11); NEUTROPHILS 80.6 % (40-80); PLATELET COUNT 51 10x3/uL (130-400); RBC 3.39 10x6/uL (4.20-6.10); RDW 21.2 % (11.5-14.5); WBC 10.4 10x3/uL (4.8-10.8)
--- NOTE | 2017-01-20 22:15 | NUR ---
HEART RATE DROPPED TO UPPER 40'S. SEDATION DECREASED. HR REMAINED BELOW 50. DOPAMINE STARTED, FAMILY NOTIFIED WITH CHANGE IN PATIENTS CONDITION.
[2017-01-20 22:19] LABS: ALBUMIN 1.8 g/dL (3.4-5.0); ALKALINE PHOSPHATASE 84 U/L (46-116); ALT (SGPT) 23 U/L (10-68); BILIRUBIN - TOTAL 5.56 mg/dL (0.2-1.3); CARBON DIOXIDE 20.1 mmol/L (21.0-32.0); GLUCOSE 161 mg/dL (74-106); POTASSIUM - SERUM 3.2 mmol/L (3.5-5.1); PROTEIN - SERUM 5.8 g/dL (6.4-8.2); SODIUM 147 mmol/L (136-145)
[2017-01-20 22:21] LABS: CALC OSMOLALITY 299 mosm/kg (275-300); CREATININE - SERUM 0.6 mg/dL (0.6-1.3); UREA NITROGEN 26 mg/dL (7-18); eGFR NON AFRICAN AMERICAN > 90 mL/min (90-120)
[2017-01-20 22:22] LABS: CALCIUM 6.4 mg/dL (8.5-10.1); CHLORIDE - SERUM 117 mmol/L (98-107)
--- NOTE | 2017-01-20 23:00 | NUR ---
HEART RATE HAS INCREASED, BP STABLE. DOPAMINE OFF, LEVOPHED WEANED DOWN. REASSESSMENT COMPLETE. NO OTHER ACUTE CHANGES. SEE FLOWSHEET.
[2017-01-21] VITALS (96 sets, daily range): BP systolic 94–130; BP diastolic 58–91
--- NOTE | 2017-01-21 00:40 | NUR ---
PATIENT INCONTINENT OF STOOL. NO BLOOD SEEN IN BM. PATIENT CLEANED AND LINENS CHANGED.
--- NOTE | 2017-01-21 03:00 | NUR ---
REASSESSMENT COMPLETE, NO ACUTE CHANGES.
[2017-01-21 04:52] LABS: BASOPHILS 0.3 % (0-2); HEMATOCRIT 31.2 % (42.0-54.0); HEMOGLOBIN 10.2 g/dL (13.5-17.5); IMMATURE GRANULOCYTES 0.5 % (0-5); LYMPHOCYTES 7.9 % (15-50); MCHC 32.7 g/dL (31.0-37.0); MCV 85.7 fL (80.0-100.0); MONOCYTES 10.5 % (2-11); NEUTROPHILS 78.8 % (40-80); PLATELET COUNT 60 10x3/uL (130-400); RBC 3.64 10x6/uL (4.20-6.10); RDW 21.4 % (11.5-14.5); WBC 11.7 10x3/uL (4.8-10.8)
[2017-01-21 05:03] LABS: CALC OSMOLALITY 299 mosm/kg (275-300); CARBON DIOXIDE 21.2 mmol/L (21.0-32.0); CREATININE - SERUM 0.7 mg/dL (0.6-1.3); GLUCOSE 162 mg/dL (74-106); SODIUM 147 mmol/L (136-145); UREA NITROGEN 24 mg/dL (7-18); eGFR NON AFRICAN AMERICAN > 90 mL/min (90-120)
[2017-01-21 05:04] LABS: POTASSIUM - SERUM 3.8 mmol/L (3.5-5.1)
[2017-01-21 05:05] LABS: CALCIUM 6.8 mg/dL (8.5-10.1); CHLORIDE - SERUM 117 mmol/L (98-107)
--- NOTE | 2017-01-21 05:10 | NUR ---
CORRECTED CALIUM 8.5
--- NOTE | 2017-01-21 05:30 | NUR ---
PATIENT HAD SMALL AMOUNT OF DIARRHEA. CLEANED UP AND LINEN CHANGED.
--- NOTE | 2017-01-21 08:54 | NUR ---
TOTAL BED CHANGE PROVIDED AT THIS TIME, INCONTINENT BOWEL MOVEMENT. STOOL SPECIMEM COLLECTED FOR CDIFF TEST. ALSO AT THIS TIME RECTAL TUBE PLACED FOR SKIN PRESERVATION. PT TURNED Q2H. WILL CONTINUE PLAN OF CARE.
--- NOTE | 2017-01-21 09:33 | NUR ---
DR RESENDIZ AND DR PITTMAN HAVE SPOKEN WITH PTS FAMILY (MOM, DAD, BROTHER) AT BEDSIDE AT THIS TIME. ALL QUESTIONS AND CONCERNS ADRESSED. NO ACUTE DISTRESS NOTED. WILL CONTINUE PLAN OF CARE.
--- NOTE | 2017-01-21 11:10 | NUR ---
NO ACUTE DISTRESS NOTED. NO CHANGE. PT TURNED Q2H. WILL CONTINUE PLAN OF CARE.
--- NOTE | 2017-01-21 13:36 | NUR ---
INCONTINENT BOWEL MOVEMENT NOTED AT THIS TIME WHICH LEAKED AROUND RECTAL TUBE. NOTED RECTAL TUBE IS IN PLACE. MALONE CARE AND ANDREW CARE PROVIDED VIA TOTAL ASSIST X 2 PERSON. PT TURNED Q2H. NO ACUTE DISTRESS NOTED. WILL CONTINUE PLAN OF CARE.
--- NOTE | 2017-01-21 15:28 | NUR ---
FAMILY AT BEDSIDE. UPDATE GIVEN. NO ACUTE DISTRESS NOTED. WILL CONTINUE PLAN OF CARE.
--- NOTE | 2017-01-21 15:30 | NUR ---
NO CHANGE. PT TURNED Q2H. MOVES EXTREMITIES AT TIMES, DOES NOT FOLLOW COMMANDS. NO ACUTE DISTRESS NOTED. WILL CONTINUE PLAN OF CARE.
--- NOTE | 2017-01-21 17:29 | NUR ---
NO ACUTE DISTRESS NOTED AT THIS TIME. NO CHANGE. PT TURNED Q2H. WILL CONTINUE PLAN OF CARE.
--- NOTE | 2017-01-21 19:00 | NUR ---
REPORT RECEIVED. SEDATED ON VENT, SEE FLOW SHEET FOR VENT SETTINGS. BLOOD DRAWN FOR STAT H&H. OGT IN PLACE TO LIS. ETT IN PLACE. TELEMETRY MONITORING SINUS RHYTHM RATE OF 69. R IJ CVL PATENT SEE FLOW SHEET FOR IV DRIPS. MALONE CATHETER IN PLACE. RECTAL TUBE IN PLACE. SCDs IN PLACE. HOB 30 DEGREES. BED IN LOWEST POSITION. SEE FLOW SHEET FOR COMPLETE ASSESSMENT.
[2017-01-21 19:42] LABS: HEMATOCRIT 31.3 % (42.0-54.0)
--- NOTE | 2017-01-21 21:00 | NUR ---
NO VISITORS AT THIS TIME. VSS. NO CHANGES NOTED. WILL CONTINUE TO MONITOR.
--- NOTE | 2017-01-21 23:00 | NUR ---
REASSESSMENT COMPLETE, SEE FLOW SHEET FOR DETAILS. NO CHANGES NOTED. VSS. WILL CONTINUE TO MONITOR.
[2017-01-22] VITALS (57 sets, daily range): BP systolic 89–116; BP diastolic 63–82
--- NOTE | 2017-01-22 01:00 | NUR ---
SEDATED ON VENT. VSS. BED IN LOWEST POSITION. WILL CONTINUE TO MONITOR.
--- NOTE | 2017-01-22 03:00 | NUR ---
REASSESSMENT COMPLETE, SEE FLOW SHEET FOR DETAILS. VSS. WILL CONTINUE TO MONITOR. TITRATING LEVOPHED TO MAINTAIN MAP >60. BED IN LOWEST POSITION.
--- NOTE | 2017-01-22 05:00 | NUR ---
NO CHANGES NOTED. WILL CONTINUE TO MONITOR. BED IN LOWEST POSITION.
[2017-01-22 05:01] LABS: BASOPHILS 0.4 % (0-2); EOSINOPHILS 1.7 % (0-7); HEMATOCRIT 25.9 % (42.0-54.0); IMMATURE GRANULOCYTES 0.3 % (0-5); LYMPHOCYTES 9.4 % (15-50); MCH 27.1 pg (26.0-34.0); MCHC 30.9 g/dL (31.0-37.0); MEAN PLATELET VOLUME 10.2 fL (7.4-10.4); MONOCYTES 17.1 % (2-11); NEUTROPHILS 71.1 % (40-80); PLATELET COUNT 65 10x3/uL (130-400); RBC 2.95 10x6/uL (4.20-6.10); RDW 22.4 % (11.5-14.5); WBC 14.3 10x3/uL (4.8-10.8)
[2017-01-22 05:02] LABS: MCV 87.8 fL (80.0-100.0)
[2017-01-22 05:21] LABS: CARBON DIOXIDE 19.2 mmol/L (21.0-32.0); CREATININE - SERUM 0.8 mg/dL (0.6-1.3); GLUCOSE 132 mg/dL (74-106); POTASSIUM - SERUM 3.6 mmol/L (3.5-5.1); SODIUM 145 mmol/L (136-145); eGFR NON AFRICAN AMERICAN > 90 mL/min (90-120)
[2017-01-22 05:23] LABS: CALC OSMOLALITY 292 mosm/kg (275-300); UREA NITROGEN 17 mg/dL (7-18)
[2017-01-22 05:24] LABS: CALCIUM 6.4 mg/dL (8.5-10.1); CHLORIDE - SERUM 119 mmol/L (98-107)
--- NOTE | 2017-01-22 06:05 | NUR ---
NO CHANGES NOTED. NO VISITORS AT THIS TIME. TITRATING LEVOPHED TO MAINTAIN MAP >60. BED IN LOWEST POSITION. WILL CONTINUE TO MONITOR.
[2017-01-22 06:08] LABS: ALBUMIN 1.7 g/dL (3.4-5.0)
[2017-01-22 06:14] LABS: BASOPHILS 1.9 % (0-2); EOSINOPHILS 1.9 % (0-7); LYMPHOCYTES 8.4 % (15-50); MCHC 31.9 g/dL (31.0-37.0); MCV 87.9 fL (80.0-100.0); MONOCYTES 18.9 % (2-11); NEUTROPHILS 64.9 % (40-80); RDW 22.6 % (11.5-14.5); WBC 13.4 10x3/uL (4.8-10.8)
[2017-01-22 06:15] LABS: HEMATOCRIT 32.6 % (42.0-54.0); HEMOGLOBIN 10.4 g/dL (13.5-17.5); PLATELET COUNT 50 10x3/uL (130-400); RBC 3.71 10x6/uL (4.20-6.10)
--- NOTE | 2017-01-22 09:35 | NUR ---
Nutrition follow-up/consult: Noted order from Dr. Jimenez to start TF Chart reviewed Pt remains intubated. Labs noted RDN will order Vital 1.0 silvia to begin @ 20 ml/hr with gradual increase to goal rate of 75 ml/hr RDN following.
--- NOTE | 2017-01-22 13:55 | NUR ---
* Is the patient Alert and Oriented? No 0 * PCP None 0 * Pharmacy [facility] on [address] * Preadmission Environment Home with Family 0 * List name and contact numbers for known caregivers / representatives who currently or will assist patient after discharge: Brother - Patrick [phone] Parents - Marla [phone] 0 * Has this patient been hospitalized within the prior 30 days at any hospital? No 01/22/2017 13:55 DCP: Discharge Planning Patient Name: DARYN AGUERO Admission Status: ER Accout number: [id number] Admission Date: 01-19-2017 : 1955 Admission Diagnosis: Attending: ELIZABETH Current LOS: 3 Primary Insurance: [employer] ADV Discharge Planning Comments: Patient sedated, on ventilator. Spouse not present. Spoke with patient's brother, Patrick, via telephone. Patrick reports patient was living at home with his , Judith. He states Judith may have developmental delays and difficulty comprehending patients medical condition. He states patient has had multiple hospital admissions & ED visits due to poor medical compliance. He does not have a primary care physician. Patrick states he had a nebulizer at one point, but does not know if he still has one or not. Patient does not have a living will or durable POA to his knowledge. Answered his questions/concerns. CM will follow and assist with DC needs. Repair Armature Winder: Luisa Costa
--- NOTE | 2017-01-22 19:00 | NUR ---
REPORT RECEIVED. SEDATED ON VENT, SEE FLOW SHEET FOR VENT SETTINGS. OGT IN PLACE INFUSING TUBE FEEDINGS AT 20 MLS/HR, RESIDUAL OF 5 MLS, INCREASED FEEDINGS TO 30 MLS/HR. ETT IN PLACE. TELEMETRY MONITORING RATE OF 71. R IJ CVL, SEE FLOW SHEET FOR IV DRIPS. MALONE CATHETER IN PLACE. RECTAL TUBE IN PLACE. SCDs ON. SEE FLOW SHEET FOR COMPLETE ASSESSMENT.
--- NOTE | 2017-01-22 19:13 | PRO ---
PATIENT:DARYN AGUERO MEDICAL RECORD: [id number] : 59 LOCATION:[facility] [id number] ADMISSION DATE: 01/19/17 PROCEDURE PERFORMED BY: BABAR CHRISTIANSON MD DATE OF PROCEDURE: 01/19/2017 PROCUREMENT INTERN: Babar Christianson MD PROCEDURE: EGD with cauterization of an AVM for hemorrhage control. INDICATION: The patient is a 61-year-old white male with history of tobacco abuse, COPD, alcohol abuse with known liver disease as well as severe reflux esophagitis with documented severe ulcerative esophagitis on EGD about a year ago by Dr. Blackburn, who basically was admitted with respiratory failure and GI bleeding and anemia. He is intubated. He is now for EGD. PREMEDICATION: Taper anesthesia. INSTRUMENT: Olympus video gastroscope. FINDINGS: The endoscope was passed through the oropharynx to the second portion of the duodenum without difficulty. The esophagus was remarkable for a large, cratered 2 cm ulceration in the distal esophagus suggestive of underlying reflux-induced ulcerative esophagitis, and possible pill esophagitis. There was no active bleeding at present. The stomach was entered and was remarkable for mild diffuse portal hypertensive gastropathy. There was no esophageal or gastric varices noted. The duodenum was entered and was remarkable for mild duodenitis as well as a tiny AVM in the duodenal bulb. It was not bleeding, but I went ahead and cauterized with gold probe using 20 joules. The rest of exam was normal. He had already been biopsied a year ago and was negative for H. pylori. The patient tolerated the procedure well without immediate complication. IMPRESSION: 1. Large cratered ulcer in the distal esophagus, probably due to both reflux-induced ulcerative esophagitis and pill esophagitis. 2. Mild diffuse portal hypertensive gastropathy. 3. 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 4. Otherwise, normal esophagogastroduodenoscopy. RECOMMENDATIONS: 1. High dose Protonix. 2. Carafate elixir. 3. Try to avoid pills if at all possible for a while and use liquid medications if at all possible. 4. I obviously encouraged the patient to quit drinking alcohol as well as to take his medications slowly while sitting straight up and one medication at a time with lots of fluids. 5. Obviously, he will need long-term PPI therapy at a high dose. TRANSINT:[id number] Voice Confirmation ID: [id number] DOCUMENT ID: [id number] PROCEDURE NOTE [id number] DARYN AGUERO JOHN MD at 1913 CC: DE PITTMAN MD [id number] DICTATION DATE: 01/19/17 1424 RECREATION DIRECTOR: 01/20/17 1055 ADM IN [place] [id number] [place] [id number]
--- NOTE | 2017-01-22 19:13 | CN ---
PATIENT NAME:DARYN AGUERO MEDICAL RECORD: [id number] : 59 LOCATION:[id number] ADMIT DATE: 01/19/17 ACCOUNT: [id number] CONSULTING PHYSICIAN: CARL HUNT MD REFERRING PHYSICIAN: CESAR MOE MD DATE OF CONSULTATION: 01/19/2017 GASTROENTEROLOGY CONSULTATION REFERRING PHYSICIAN: Cesar Moe MD HISTORY OF PRESENT ILLNESS: The patient is a 61-year-old white male with longstanding history of alcohol abuse, tobacco abuse with COPD, known reflux esophagitis, basically was admitted with hematemesis and respiratory failure. His last EGD was by Dr. Blackburn in my absence that revealed severe ulcerative esophagitis, this was back in February 2016. Biopsies from his stomach did not reveal any H. pylori. There was no evidence of any esophageal or gastric varices either. Of note, he also has hepatitis C. I was asked to see the patient to help in his evaluation. Unfortunately, the patient is intubated and I could only get his history from his . PAST MEDICAL HISTORY: As above. PAST SURGICAL HISTORY: Remarkable for bilateral inguinal hernia repair and bilateral shoulder surgery. ALLERGIES: No known drug allergies. HOME MEDICATIONS: Include iron sulfate, folic acid, thiamine, Levaquin, prednisone, tramadol, Protonix 40 mg b.i.d., I am not sure if he has been compliant on taking that. He also takes some inhalers. FAMILY HISTORY: Negative for GI disease. SOCIAL HISTORY: The patient has been a longtime smoker. Apparently quit smoking about 2 years ago. He continues to drink alcohol daily. REVIEW OF SYSTEMS: Unobtainable. PHYSICAL EXAMINATION: GENERAL: Reveals a chronically ill-appearing white male, sedated on the vent. HEENT: Unremarkable. NECK: Supple. CHEST: Reveals bilateral crackles. HEART: Regular rate and rhythm. ABDOMEN: Soft, nontender. EXTREMITIES: No edema. LABORATORY DATA: Reveals a white count of 36,000, hematocrit 23 and platelet count 91,000 with a marked left shift. Potassium 5.4, BUN 43, creatinine 2.0. Lactic acid 8.8, total bilirubin is 7.5. AST 95, ALT 33, alkaline phosphatase 131, ammonia levels 115. Albumin is 1.7. INR is 2.3. Alcohol is 110. Chest x-ray is negative. IMPRESSION: CONSULT REPORT [id number] DARYN AGUERO 1. Apparent upper gastrointestinal bleed of uncertain etiology, though I suspect he has recurrent bleeding from ulcerative esophagitis and probably he is not compliant on taking his PPIs. 2. History of severe chronic obstructive pulmonary disease. 3. History of hepatitis C. 4. History of ongoing alcohol abuse. RECOMMENDATION: 1. High dose Protonix drip. 2. EGD. 3. Encourage the patient to stop drinking. 4. Prognosis is guarded. TRANSINT:[id number] Voice Confirmation ID: [id number] DOCUMENT ID: [id number] CARL HUNT MD at 1913 CC: CESAR MOE MD [id number] DICTATION DATE: 01/19/17 1354 TILE CONDUIT LAYER: 01/19/17 2337 ADM IN [facility] [address] [place] [address]
--- NOTE | 2017-01-22 21:00 | NUR ---
NO VISITORS AT THIS TIME. VSS. WILL CONTINUE TO MONITOR. BED IN LOWEST POSITION.
--- NOTE | 2017-01-22 23:00 | NUR ---
REASSESSMENT COMPLETE, SEE FLOW SHEET FOR DETAILS. VSS. WILL CONTINUE TO MONITOR.
[2017-01-23] VITALS (65 sets, daily range): BP systolic 95–147; BP diastolic 59–98
--- NOTE | 2017-01-23 01:00 | NUR ---
SEDATED ON VENT. VSS. WILL CONTINUE TO MONITOR.
--- NOTE | 2017-01-23 03:00 | NUR ---
REASSESSMENT COMPLETE, SEE FLOW SHEET FOR DETAILS. VSS. WILL CONTINUE TO MONITOR.
[2017-01-23 04:24] LABS: BASOPHILS 0.5 % (0-2); EOSINOPHILS 2.1 % (0-7); HEMATOCRIT 30.6 % (42.0-54.0); HEMOGLOBIN 9.6 g/dL (13.5-17.5); IMMATURE GRANULOCYTES 0.6 % (0-5); LYMPHOCYTES 14.2 % (15-50); MCHC 31.4 g/dL (31.0-37.0); MCV 89.2 fL (80.0-100.0); MEAN PLATELET VOLUME 10.2 fL (7.4-10.4); MONOCYTES 23.4 % (2-11); NEUTROPHILS 59.2 % (40-80); RBC 3.43 10x6/uL (4.20-6.10); RDW 22.8 % (11.5-14.5)
[2017-01-23 04:30] LABS: PLATELET COUNT 62 10x3/uL (130-400); WBC 9.6 10x3/uL (4.8-10.8)
[2017-01-23 04:53] LABS: ALBUMIN 2.1 g/dL (3.4-5.0); ALKALINE PHOSPHATASE 137 U/L (46-116); ALT (SGPT) 35 U/L (10-68); AMYLASE - SERUM 194 U/L (25-115); BILIRUBIN - TOTAL 6.04 mg/dL (0.2-1.3); CALC OSMOLALITY 306 mosm/kg (275-300); CALCIUM 7.1 mg/dL (8.5-10.1); CREATININE - SERUM 0.8 mg/dL (0.6-1.3); GLUCOSE 138 mg/dL (74-106); LIPASE 1476 U/L (73-393); PHOSPHOROUS 2.4 mg/dL (2.5-4.9); POTASSIUM - SERUM 3.4 mmol/L (3.5-5.1); PRO BNP 399 pg/mL (0-125); PROTEIN - SERUM 6.5 g/dL (6.4-8.2); SODIUM 153 mmol/L (136-145); THYROID STIMULATING HORMONE 0.76 uIU/mL (0.36-3.74); UREA NITROGEN 15 mg/dL (7-18); eGFR NON AFRICAN AMERICAN > 90 mL/min (90-120)
[2017-01-23 04:55] LABS: CHLORIDE - SERUM 123 mmol/L (98-107); MAGNESIUM - SERUM 3.7 mg/dL (1.8-2.4)
--- NOTE | 2017-01-23 05:00 | NUR ---
REPOSITIONED FOR COMFORT, ORAL CARE PROVIDED,
--- NOTE | 2017-01-23 10:04 | OP ---
PATIENT NAME: DARYN AGUERO MEDICAL RECORD: [id number] :57 LOCATION:D.[facility] D.2303 ADMISSION DATE:01/19/17 SURGEON: EDILBERTO ORANTES MD DATE OF OPERATION: 01/19/2017 PREOPERATIVE DIAGNOSES: 1. Acute blood loss anemia requiring transfusions. 2. Upper gastrointestinal bleeding. 3. Ventilatory failure requiring mechanical ventilation. 4. Lack of adequate peripheral IV access. POSTOPERATIVE DIAGNOSES: 1. Acute blood loss anemia requiring transfusions. 2. Upper gastrointestinal bleeding. 3. Ventilatory failure requiring mechanical ventilation. 4. Lack of adequate peripheral IV access. PROCEDURE: Insertion of right supraclavicular 16-cm triple lumen central venous catheter. SURGEON: Edilberto Orantes MD. DIRECTOR MEETINGS: None. BLOOD LOSS: Minimal. ANESTHESIA: Local. COMPLICATIONS: None. The risks, possible complications and alternatives to procedure were explained to the patient. He elects to proceed. OPERATIVE COURSE: The patient was seen in the ER. He was positioned in Trendelenburg position. The right neck and right upper chest were sterilely prepped and draped. Local anesthetic was used to infiltrate the skin and subcutaneous tissues at the base of the right neck. It had difficulty accessing the internal jugular vein, likely due to hypovolemia. I then utilized a supraclavicular antegrade approach to the subclavian vein and was able to access it on the first try. A guidewire passed easily. A small skin alin was accomplished. A vessel dilator was used to dilate the subcutaneous tract. A 16-cm triple lumen central venous catheter was inserted to the hub. It was sutured in place times 3. All lumens flushed easily and aspirated dark, nonpulsatile blood. A stat portable chest x-ray is pending. I have told the nursing staff that they can begin using the central venous line immediately. TRANSINT:[id number] Voice Confirmation ID: [id number] DOCUMENT ID: [id number] OPERATIVE REPORT [id number] DARYN AGUERO EDILBERTO ORANTES MD at 1004 CC: [id number] DICTATION DATE: 01/19/17 0954 HAY FARMER: 01/19/172018 ADM IN [facility] [address] [place] [address]
--- NOTE | 2017-01-23 19:20 | NUR ---
REPORT RECIEVED. ASSESSMENT COMPLETE PER FLOW SHEET. VSS. PT SEDATED PROPOFOL AT 30MCG/KG/MIN, PT UNRESPONSIVE TO PAIN OR VERBAL STIMULI NO COUGH/GAG REFLEX OR BLINK REFLEX PRESENT. PROPOFOL DECREASED TO 15MCG/KG/MIN WILL REASSESS. PT DISORIENTED X4. O2 VIA VENT LIP LINE LEFT AT 22 CM ORAL ENDOTRACH CARE ADM. OGT PATENT VERIFIED VIA AUSCULTATION VITAL 1.0 INFUSING AT 40CC/HR. RESIDUAL 10. VENT SETTINGS FOLLOWS, SIMV 60% RR 16 PT RR 20 TV 550 PEEP 7. O2 SAT 95%. LUNGS BILAT ALL LOBES COARSE CRACKLES RALES HEARD SPUTUM PINK TINGED AND CLEAR. HEART S1S2 HR 103 SINUS TACK. BP 137/92 VIA L ARM NIBP. NO DPPS INFUSING AT THIS TIME. NS AT KVO 10ML/HR AND PROTONIX AT 10ML/HR TO R SUBCLAVIAN CVL DRSG CDI CVL PATENT SWAB CAPPED AND LABLED. BS ACTIVE X4 ABD SOFT NON TENDER FLAT. MALONE PANTENT DARK SUZE URINE NOTED MALONE CARE ADM. RECTAL TUBE PATENT DARK WATERY STOOL NOTED. GENERALIZED EDEMA NOTED X4 EXTREMETIES BILAT RADIAL AND PEDAL PULSES PALP +2. SCDS ON SKIN ASSESSMENT COMPLETE NO NEW FINDINGS. BILAT WRIST RESTRAINTS ON. SKIN ASSESSMENT COMPLETE NO NEW FINDINGS REAPPLIED BED IN LOWEST POSITIONED SIDE RAILS UP X2. RPOSITIONED ON R SIDE. NEEDS MET. VSS. WILL CONTINUE TO MONITOR.
--- NOTE | 2017-01-23 20:10 | NUR ---
DR MCDOWELL AT BEDSIDE. GIVEN UPDATE.
--- NOTE | 2017-01-23 22:21 | NUR ---
REASSESSED NEURO STATUS NO NEW FINDINGS. NO BLINK COUGH OR GAG REFLEX PRESENT. PT UNABLE TO FOLLOW COMMANDS NO PAIN RESPONSE AT THIS TIME. PROPFOL NOW PAUSED FOR COMPLETE NUERO ASSESSMENT. WILL CONTINUE TO MONITOR.
--- NOTE | 2017-01-23 23:00 | NUR ---
REASSESSMENT COMPLETE PER FLOW SHEET REFER FOR FINDINGS.
--- NOTE | 2017-01-23 23:30 | NUR ---
DR LUNDBERG PAGED PT SPUTUM NOTED PINK FROTHY O2 SAT 89% RESP AT BEDSIDE INCREASED FIO2 TO 70% O2 SAT NOW AT 90% PT REPOSITIONED UP IN BED. PEAK PRESSURE 42 WITH PLATEAU OF 37 ABG'S OBTAIONED PH OF 7.1 READ. GENERALIZED EDEMA NOTED X4 EXTREMTIES[address] DR LUNDBERG GIVEN UPDATE. NEW ORDERS RECIEVED FOR LASIX 40MG IV TO BE ADM ONE TIME DOSE. VENT SETTINGS TO BE A/C AT A RATE OF 15. WILL NOTIFY RESP. AND CONTINUE TO MONITOR.
[2017-01-24] VITALS (24 sets, daily range): BP systolic 85–199; BP diastolic 55–78
--- NOTE | 2017-01-24 01:00 | NUR ---
VSS WILL CONTINUE TO MONITOR.
--- NOTE | 2017-01-24 03:00 | NUR ---
REASSESSMENT COMPLETE PER FLOW SHEET, REFER FOR DETAILS.
[2017-01-24 04:55] LABS: BASOPHILS 0.3 % (0-2); EOSINOPHILS 0.4 % (0-7); HEMATOCRIT 27.5 % (42.0-54.0); HEMOGLOBIN 8.2 g/dL (13.5-17.5); IMMATURE GRANULOCYTES 0.1 % (0-5); LYMPHOCYTES 12.3 % (15-50); MCH 27.7 pg (26.0-34.0); MCHC 29.8 g/dL (31.0-37.0); MONOCYTES 17.3 % (2-11); NEUTROPHILS 69.6 % (40-80); PLATELET COUNT 58 10x3/uL (130-400); RBC 2.96 10x6/uL (4.20-6.10); RDW 23.6 % (11.5-14.5)
[2017-01-24 04:56] LABS: MCV 92.9 fL (80.0-100.0)
--- NOTE | 2017-01-24 05:00 | NUR ---
VSS. WILL CONTINUE TO MONITOR.
[2017-01-24 05:16] LABS: ANION GAP 14.5 mmol/L (8-16); CALCIUM 7.1 mg/dL (8.5-10.1); CARBON DIOXIDE 18.7 mmol/L (21.0-32.0); CREATININE - SERUM 1.1 mg/dL (0.6-1.3); PHOSPHOROUS 2.8 mg/dL (2.5-4.9); POTASSIUM - SERUM 4.2 mmol/L (3.5-5.1)
--- NOTE | 2017-01-24 06:00 | NUR ---
NO VISITORS AT THIS TIME. VSS WILL CONTINUE TO MONITOR.
--- NOTE | 2017-01-24 07:30 | NUR ---
REPORT RECD PT CARE ASSUMED. PT IS LIGHTLY SEDATED, DOES NOT FOLLOW COMMANDS. S1S2 NOTED, SR PER CM. ADVENTICIOUS LUNG SOUNDS BILAT. RT/MALONE/SCSD IN PLACE. PPP. ABD IS DISTENDED, BOWEL SOUNDS ACTIVE. VSS. SEE SHIFT ASSESSMENT FOR FURTHER DETAIL. WILL CONT TO MONITOR.
--- NOTE | 2017-01-24 09:30 | NUR ---
PT RESTING, LIGHTLT SEDATED. PT REPOSITIONED AND PULLED UP IN BED. ORAL CARE AND SUCTION PROVIDED. MD AT BEDSIDE PROVIDED WITH UPDATES.
--- NOTE | 2017-01-24 10:45 | NUR ---
Nutrition follow-up: Pt remains intubated, lightly sedated OGT->Vital 1.0 silvia infusing @ 40 ml/hr To increase to goal rate of 75 ml/hr Labs reviewed RDN following.
--- NOTE | 2017-01-24 12:00 | NUR ---
NO CHANGES AT THIS TIME. VSS. WILL MONITOR.
[2017-01-24 13:21] LABS: FUNGUS STAIN Final report (())
--- NOTE | 2017-01-24 14:00 | NUR ---
SPOKE WITH FAMILY ON PHONE TODAY. UPDATE PROVIDED. TO BROTHER/. RECOMMENDED UPDATE BE PROVIDED BY MD REGARDING BRAIN FUNCTION. VSS.
--- NOTE | 2017-01-24 16:00 | NUR ---
RESIDUALS OK. TF INCREASED PER ORDER.
--- NOTE | 2017-01-24 18:00 | NUR ---
PT FAMILY AT BEDSIDE, UPDATE PROVIDED. PT SUCTIONED AND ORAL CARE PROVIDED. VSS. WILL MONITOR.
--- NOTE | 2017-01-24 19:30 | NUR ---
SHIFT ASSESSMENT COMPLETED. PUPILS 3 MM, SLUGGISH REACTION TO LIGHT. ETT SIZE 7.5, 24 CM MIDLINE. VENT SETTINGS: A/C, RATE-20, TIDAL VOLUME-550, PEEP-8.0, FIO2-50%. S1S2 AUDIBLE. SINUS TACH VIA TELEMETRY. CVP ZEROED, READING IS 20. OGT RESIDUAL 5 ML. VITAL 1.0 TUBE FEEDING RUNNING @ 70 ML/HR. RIGHT SUBCLAVIAN ACCESS. DRESSING CDI. PROPOFOL @ 15 MCG/KG/MIN, 1/2 NS @ 75 ML/HR, MULTI VITAMIN @ 50 ML/HR, PROTONIX @ 10 ML/HR. DISTENDED ABDOMEN WITH GENERALIZED SWELLING TO THE UPPER AND LOWER EXTREMITIES. SCROTUM EDEMATOUS. BILATERAL SCABS ON LEGS. BRUISING BILAT ARMS. MALONE CATH DRAINING DARK SUZE URINE. RECTAL TUBE IRRIGATED. SCD AND RESTRAINTS RELEASED AND SKIN ASSESSED, WNL. POSITIONED ON L SIDE. RIGHT BUTTOCKS RED AND EXCORIATED. ORAL CARE PROVIDED. BED IN LOWEST POSITION. WILL CONTINUE TO MONITOR.
--- NOTE | 2017-01-24 21:00 | NUR ---
REPOSITIONED PT TO BACK. OGT PLACEMENT CHECKED. ORAL CARE PROVIDED. BED IN LOWEST POSITION. WILL CONTINUE TO MONITOR.
--- NOTE | 2017-01-24 23:00 | NUR ---
REPOSITIONED PT ON THE R SIDE. ORAL CARE PROVIDED. MALONE CARE PROVIDED AND NEW STAT LOCK PLACED ON R LEG. SKIN ASSESSED UNDER OLD STAT LOCK, WNL. TUBE FEED TUBING CHANGED AND DATED. IV FLUIDS AND TUBING ARE UP TO DATE AND MARKED. CRACKLES BILAT THROUGHOUT LUNGS. SUCTIONED, PINK FROTHY SPUTUM. O2 SAT 97%. BED IN LOWEST POSITION. WILL CONTINUE TO MONITOR.
[2017-01-25] VITALS (24 sets, daily range): BP systolic 90–129; BP diastolic 57–85
--- NOTE | 2017-01-25 01:00 | NUR ---
REPOSITIONED PT TO R SIDE. REPOSITIONED SCD'S. ORAL CARE PROVIDED. VSS. BED IN LOWEST POSITION. WILL CONTINUE TO MONITOR.
--- NOTE | 2017-01-25 03:00 | NUR ---
OGT DISLODGED. NEW ONE PLACED. X-RAY CONFIRMED PLACEMENT. RESIDUAL CHECKED, 0 ML. INCREASED TUBE FEEDING TO 75 ML/HR. COMPLETE BED BATH AND LINEN CHANGE. LOTION APPLIED TO WHOLE BODY TO HELP WITH SCALY SKIN. REASSESSMENT COMPLETE. NO CHANGES AT THIS TIME. VSS. WILL CONTINUE TO MONITOR.
--- NOTE | 2017-01-25 05:00 | NUR ---
ORAL CARE PROVIDED. AMY'S BUTT PASTE APPLIED TO EXCORIATED AREA ON BUTTOCKS. REPOSITIONED ON THE L SIDE. BED IN LOWEST POSITION. WILL CONTINUE TO MONITOR.
[2017-01-25 05:23] LABS: BASOPHILS 0.3 % (0-2); EOSINOPHILS 1.1 % (0-7); IMMATURE GRANULOCYTES 0.7 % (0-5); LYMPHOCYTES 8.9 % (15-50); MCH 28.2 pg (26.0-34.0); MCHC 30.9 g/dL (31.0-37.0); MCV 91.3 fL (80.0-100.0); MONOCYTES 10.2 % (2-11); NEUTROPHILS 78.8 % (40-80); RBC 2.41 10x6/uL (4.20-6.10); RDW 23.5 % (11.5-14.5)
[2017-01-25 05:27] LABS: WBC 12.6 10x3/uL (4.8-10.8)
[2017-01-25 05:28] LABS: PLATELET COUNT 83 10x3/uL (130-400)
[2017-01-25 05:29] LABS: HEMOGLOBIN 6.8 g/dL (13.5-17.5)
[2017-01-25 05:34] LABS: ALBUMIN 2.2 g/dL (3.4-5.0); ANION GAP 12.8 mmol/L (8-16); BILIRUBIN - TOTAL 7.75 mg/dL (0.2-1.3); CALCIUM 7.4 mg/dL (8.5-10.1); CARBON DIOXIDE 19.6 mmol/L (21.0-32.0); POTASSIUM - SERUM 4.4 mmol/L (3.5-5.1); PROTEIN - SERUM 5.9 g/dL (6.4-8.2)
[2017-01-25 05:35] LABS: CREATININE - SERUM 1.6 mg/dL (0.6-1.3)
--- NOTE | 2017-01-25 07:30 | EEG ---
PATIENT:DARYN AGUERO DATE OF SERVICE: 01/19/17 MEDICAL RECORD: [id number] DATE OF : 59 LOCATION:D.230 D.ICU ADMISSION DATE: 01/19/17 REFERRING PHYSICIAN: INTERPRETING PHYSICIAN: AARON HERNANDEZ MD DATE OF SERVICE: 01/22/2017 Electroencephalographic Report Referred as an inpatient by Dr. Moe, currently in room #2303. ELECTROENCEPHALOGRAM NUMBER: [id number] DATE OF EXAMINATION: 01/22/2017 at 10:00 a.m. TECHNICAL DATA: This electroencephalographic recording consisted of approximately 20 minutes of data collection utilizing the international 10/20 system of electrode placement and both referential and non-referential montages. Sixteen channels of electrocerebral recording are accompanied by a 17th channel dedicated to the electrocardiographic rhythm and 2 channels of electromyographic recording. Recording is performed in the lethargic state utilizing activation by photic stimulation as well as verbal and tactile stimulation. ELECTROENCEPHALOGRAPHIC DATA: The entirety of the recorded electrocerebral activity is performed in the lethargic state. Sedation with Diprivan was discontinued 30 minutes before recording is initiated. Electromyographic artifact is at times fairly prominent and increases as the recording progresses. No rapid eye movements are seen. The posterior dominant background is seen only at intervals and consists of a symmetric semi-rhythmic waxing and waning 5-6 Hz theta activity, which is suppressed by eye opening. The study is monotonous and includes also an irregular generalized and symmetric 2-3 Hz delta slowing, which is seen throughout the recording. No focal slowing is identified. No epileptiform discharges are seen. Photic stimulation as well as verbal and tactile stimulation induces no significant change in the recorded electrocerebral activity. INTERPRETATION: 1. Continuous slow, generalized (lethargy). 2. Background slow. This electroencephalographic recording is indicative of a moderate diffuse encephalopathy. TRANSINT:[id number] Voice Confirmation ID: [id number] DOCUMENT ID: [id number] ELECTROENCEPHALOGRAM REPORT [id number] DARYN AGUERO AARON HERNANDEZ MD at 0730 CC: [id number] DICTATION DATE: 01/23/17 0858 MECHANIC SOUND TECHNICIAN: 01/24/17 0122 ADM IN [facility] [id number] [place] [address]
--- NOTE | 2017-01-25 09:09 | NUR ---
1ST U PRBC'S BEGAN ORDERED TRANSFUSION PARAMETERS. VSS, AFEBRILE.
--- NOTE | 2017-01-25 10:31 | NUR ---
Nutrition follow-up: Pt remains intubated OGT with Vital 1.0 silvia infusing @ 75 ml/hr Pt currently tolerating TF at goal rate RDN following.
--- NOTE | 2017-01-25 11:28 | NUR ---
BROTHER JESUSITA IS SPEAKING TO DR GARCIA ON THE PHONE AT PRESENT.
--- NOTE | 2017-01-25 15:03 | NUR ---
1400- RESICULE = 300CC. TF TURNED OFF.
--- NOTE | 2017-01-25 16:23 | NUR ---
RESIDULE 360 AFTER TF OFF X 2 HRS, REPORTED TO DR GARCIA. REC'D ORDERS.
--- NOTE | 2017-01-25 17:07 | NUR ---
UOP 250 X [address] LEA,REC'D BUMEX ORDER.
--- NOTE | 2017-01-25 19:00 | NUR ---
1900: Pt rec'd resting HOB 30 degrees with eyes closed. Pt does not open to verbal. Pt does not move extrem vs gravity. Pt remains sedated with Diprivan gtt as per IV flow sheet. Pt breathing 7.5fr ETT @ 24cm lip line with Vent AC 20/550/40/7 with pt RR 21x with SPO2 95%. In line sx produces small amount of brown sx. Oral sx produces same. Lungs with crackles heard throughout with auscultation. MMP and no cyanosis noted. S1S2 regular SR 96 on CM. RTLSC CDI with IVs per IV flow sheet. Pt has generalized edema throughout. Scrotal edema is severe at best. ABD soft NT BS absent x4. OGT clamped at this time. Rectal tube to gravity drainage with reddish brown liquid stools. Foul smelling. Solis to gravity with dark yellow UOP. SR up x2, Pt remains in bilat soft wrist restraints to prevent accidental extubation, Bed alarm on and audible.
--- NOTE | 2017-01-25 21:00 | NUR ---
2100: Pt temp 99.9F oral at this time. Blankets and sheets removed. Room temp adjusted. Pt repositioned with extrem off bed with pillow supports.
[2017-01-25 21:08] LABS: ACID FAST SMEAR Negative (()); AFB SPECIMEN PROCESSING Concentration (())
--- NOTE | 2017-01-25 23:00 | NUR ---
2300: No change in pt RESP/CV/NV status. No change in IVF/UOP. Pt remains on Vent with no changes to settings. VS as per flow sheet.
[2017-01-26] VITALS (24 sets, daily range): BP systolic 88–116; BP diastolic 58–90
--- NOTE | 2017-01-26 02:35 | NUR ---
0235: Changed all IV lines including mannifold and CVP line. CVP line transduced to CM with proper w/f and monitorring. CVP 17-18 at this time. Oral care done, Solis care done, and SCD care done at this time.
[2017-01-26 05:10] LABS: BASOPHILS 0.5 % (0-2); EOSINOPHILS 0.6 % (0-7); IMMATURE GRANULOCYTES 1.2 % (0-5); LYMPHOCYTES 6.9 % (15-50); MCH 28.3 pg (26.0-34.0); MCHC 32.4 g/dL (31.0-37.0); MONOCYTES 6.3 % (2-11); NEUTROPHILS 84.5 % (40-80); PLATELET COUNT 79 10x3/uL (130-400)
--- NOTE | 2017-01-26 05:15 | NUR ---
0515: Lab drawn, Oral care done at this time. Pt remains SR 90's and Afebrile at this time. No change in IVF/UOP. UOP remainsn >30 cc/hr. CVP 17-18. Remains on vent with RR22x with SPO2 97%. Rectal tube collection bag changed. Swab cap check done.
[2017-01-26 05:19] LABS: HEMATOCRIT 30.9 % (42.0-54.0); MCV 87.5 fL (80.0-100.0); RBC 3.53 10x6/uL (4.20-6.10); WBC 19.5 10x3/uL (4.8-10.8)
[2017-01-26 05:40] LABS: ALBUMIN 2.4 g/dL (3.4-5.0); BILIRUBIN - TOTAL 12.8 mg/dL (0.2-1.3); CALCIUM 7.8 mg/dL (8.5-10.1); CARBON DIOXIDE 18.5 mmol/L (21.0-32.0); MAGNESIUM - SERUM 2.5 mg/dL (1.8-2.4); PHOSPHOROUS 3.8 mg/dL (2.5-4.9); POTASSIUM - SERUM 4.5 mmol/L (3.5-5.1); PROTEIN - SERUM 6.2 g/dL (6.4-8.2)
--- NOTE | 2017-01-26 06:30 | NUR ---
0630: Frequent oral care. Pt has light brown liquid return from mouth/oral suction. Slightly darker brown from In-line sx. Pt repositioned for comfort.
--- NOTE | 2017-01-26 07:15 | NUR ---
ASSESSMENT COMPLETE. PT SEDATED ON VENT. SEE FLOWSHEET FOR NEURO ASSESSMENT WITH SEDATION. CALM. SEE FLOWSHEET FOR VENT SETTINGS. S1S2 NOTED RADIAL AND PEDAL PULSES PALP. NSR. CRACKLES IN RUL, RML, DARLENE. DIMINISHED LOWER LOBES BILAT. BROWN SPUTUM, THICK. DISTENDED ABDOMEN. HYPOACTIVE BOWEL SOUNDS X4. OGT CLAMPED. PLACEMENT VERIFIED. RESIDUAL 0. GENERALIZED EDEMA AND WEAKNESS. SCALY SKIN, SEE FLOWSHEET FOR FULL SKIN ASSESSMENT. RT SC CVL PATENT, SEE IV FLOWSHEET. IN RESTRAINTS. MALONE DRAINING SUZE URINE. FOR OTHER ASSESSMENT FINDINGS SEE FLOWSHEET.
--- NOTE | 2017-01-26 09:00 | NUR ---
SEDATION VACATION COMPLETE. PT TRACKS, LOOKING IN THE DIRECTION OF WHERE HE HEARS WHOEVER IS SPEAKING TO HIM. GRIMACING. RESTARTED PROPOFOL.
--- NOTE | 2017-01-26 10:59 | NUR ---
PT COUGHED UP YELLOW ORAL SECRETIONS. DR. LUNDBERG NOTIFIED. SAID THAT IS EXPECTED BECAUSE OF THE PATIENT'S LIVER FAILURE.
--- NOTE | 2017-01-26 11:06 | NUR ---
SPOKE WITH SON. PASSWORD VERIFIED, UPDATE PROVIDED.
--- NOTE | 2017-01-26 11:25 | NUR ---
PT'S CALLED FOR UPDATE BUT DID NOT HAVE THE PASSWORD. I ADVISED HER TO CONTACT JESUSITA AGUERO AND GET THE PASSWORD THEN CALL BACK AND I WOULD GIVE HER INFORMATION. I LET HER KNOW I COULD NOT GIVE OUT ANY INFORMATION BECAUSE OF PATIENT PRIVACY HIPPA LAWS.
--- NOTE | 2017-01-26 12:15 | NUR ---
DR. LUNDBERG UPDATING PATIENT'S BROTHER ON PHONE.
--- NOTE | 2017-01-26 12:45 | NUR ---
NOTIFIED PHARMACY I NEED A BAG OF BICARB MIXED
--- NOTE | 2017-01-26 13:40 | NUR ---
CHANGED FLUID BAGS TO BICARB
--- NOTE | 2017-01-26 15:10 | NUR ---
REASSESSMENT COMPLETE. SEE FLOWSHEET FOR DETAILS.
--- NOTE | 2017-01-26 15:16 | NUR ---
FAMILY AT BEDSIDE. UPDATE PROVIDED.
--- NOTE | 2017-01-26 17:45 | NUR ---
DR. RIVERS AT BEDSIDE.
--- NOTE | 2017-01-26 18:47 | NUR ---
CHANGED BED PAD. SMALL AMOUNT OF BLOOD SEEN LEAKING AROUND RECTAL TUBE. PT HAS WEEPING EDEMA IN RIGHT ARM
--- NOTE | 2017-01-26 19:15 | NUR ---
SHIFT ASSESSMENT COMPLETE, SEE SHIFT ASSESSMENT FLOWSHEET. PATIENT IS SEDATED AND ON THE VENT. OPENS EYES TO PAINFUL STIMULI. OGT INFUSING VITAL1.0 @ 10CC/HR, RESIDUAL 20CC. CRACKLES HEARD WITH LUNG SOUNDS. S1S2, RATE OF 74 ON MONITOR. BOWEL SOUNDS HYPOACTIVE. PATIENT HAVING DIARRHEA THROUGH RECTAL TUBE WHICH WAS PLACED FOR SKIN INTEGRITY. ABDOMEN IS DISTENDED, DOES NOT AFFECT HIM WHEN PALPATED. MALONE DRAINING SUZE COLORED URINE TO GRAVITY. SCROTAL SACK VERY EDEMOTOUS. ELEVATED ON TOWEL. BUTTOCKS REDDENED. LEGS HAVE SCABS/SORES. GENERALIZED EDEMA IN ALL EXTREMITIES, ELEVATED ON PILLOWS. CAP REFILL < 3SECS, PERIPHERAL PULSES +2. RIGHT SUBCLAVIAN CL, SEE IV FLOWSHEET FOR DRIPS. DRESSING C/D/I, BIOPATCH IN PLACE, SWAB CAPS IN USE. ORAL CARE GIVEN, PATIENT SUCTIONED. TURNED PER PROTOCOL. VSS, WILL MONITOR.
--- NOTE | 2017-01-26 21:05 | NUR ---
NO VISITORS AT THIS TIME. VSS.
--- NOTE | 2017-01-26 23:05 | NUR ---
REASSESSMENT COMPLETE, NO CHANGE WITH PATIENT'S STATUS.
[2017-01-27] VITALS (47 sets, daily range): BP systolic 005–120; BP diastolic 56–82
--- NOTE | 2017-01-27 01:00 | NUR ---
VSS, WILL MONITOR.
--- NOTE | 2017-01-27 03:00 | NUR ---
REASSESSMENT COMPLETE, NO CHANGES. VSS
[2017-01-27 04:56] LABS: ALBUMIN 2.3 g/dL (3.4-5.0); ANION GAP 12.8 mmol/L (8-16); BILIRUBIN - TOTAL 13.01 mg/dL (0.2-1.3); CALCIUM 7.9 mg/dL (8.5-10.1); CARBON DIOXIDE 20.3 mmol/L (21.0-32.0); CREATININE - SERUM 2.3 mg/dL (0.6-1.3); MAGNESIUM - SERUM 2.6 mg/dL (1.8-2.4); PHOSPHOROUS 4.1 mg/dL (2.5-4.9); POTASSIUM - SERUM 4.1 mmol/L (3.5-5.1); PROTEIN - SERUM 5.9 g/dL (6.4-8.2)
[2017-01-27 06:10] LABS: BASOPHILS 0.5 % (0-2); EOSINOPHILS 1.5 % (0-7); HEMATOCRIT 29.2 % (42.0-54.0); HEMOGLOBIN 9.5 g/dL (13.5-17.5); IMMATURE GRANULOCYTES 1.1 % (0-5); LYMPHOCYTES 7.5 % (15-50); MCH 28.4 pg (26.0-34.0); MCHC 32.5 g/dL (31.0-37.0); MCV 87.4 fL (80.0-100.0); MONOCYTES 6.7 % (2-11); NEUTROPHILS 82.7 % (40-80); PLATELET COUNT 82 10x3/uL (130-400); RBC 3.34 10x6/uL (4.20-6.10); RDW 21.8 % (11.5-14.5)
[2017-01-27 06:11] LABS: WBC 14.4 10x3/uL (4.8-10.8)
--- NOTE | 2017-01-27 13:37 | NUR ---
DIPRIVAN OFF PER DR. LUNDBERG INSTRUCTIONS. LEVOPHED STARTED AT 1.6 MG/HOUR AT 1215 FOR LOW BLOOD PRESSURE, DECREASED TO 1 MG/HOUR AT 1330 WITH BLOOD PRESSURE OF 120/77. REPOSITIONED. RECTAL TUBE INTACT WITH ALOT OF GAS FOUL SMELLING. STILL HAS DIARRHEA. NO SKIN BREAKDOWN IN COCCYX AREA. OPENING EYES NOT OBEYING COMMANDS PROTONIX GTT CONTINUES AT 8 MG HOUR. D51/4 NS WITH 1 AMB BICARB AT 75 ML HOUR. NS KVO FOR IVPB. INTO RIGHT SUBACLAVIN TRIPLE LUMEN. CVP CONNECTED GOOD WAVE FORM ZEROED AND FLUSHED. MALONE CATH PATENT DRAINING CLEAR DARK SUZE URNINE. OG CHECKED FOR PLACED AIR AUDIBLE IN ABD. RESIDUAL LESS THAN 20 CC. INCREASED RATE TO 20 ML HOUR. BOTH FEET ELEVATED ON PILLOW TO KEEP HEALS OFF BED. BOTH ARMS ELEVATED ON PILLOWS. WEEPING FROM BOTH ARMS NOTED. ABD FIRM WITH HYPOACTIVE BOWEL SOUNDS. BILATERAL LUNG SOUNDS ARE EQUAL. WHEEZING IN RIGHT LUNG. RHOCHI NOTED IN ALL LOBES. SCD ON LOWER LEGS. HEAD OF BED ELEVATED 30 DEGREES. BROTHER Ugo HAS CALLED AND CHECK ON PATIENT.
--- NOTE | 2017-01-27 19:15 | NUR ---
SHIFT ASSESSMENT COMPLETE, PATIENT ON VENT, SEDATION TURNED OFF TODAY TO ASSESS PATIENT'S LOC. PATIENT IS CURRENTLY OPENING EYES AND FOLLOWING ME AROUND ROOM WITH EYES, ATTEMPTING TO TALK TO ME. ORIENTED PATIENT TO TIME AND SITUATION, ASKED IF HE WAS COMFORTABLE, WHICH HE SHOOK HIS HEAD YES TO. ABLE TO MOVE ARMS ON COMMAND AND SLIGHTLY SQUUZE BOTH HANDS ON COMMAND. DID HAVE BLINK REFLEX AND GAG REFLEX. OGT RUNNING VITAL 1.0 @ 20CC/HR, RISDUAL OF 10CC, PLACEMENT VERIFIED WITH AIR BOLUS. EXP WHEEZE ON RIGHT SIDE OF LUNGS WITH AUSCULTATION, CRACKLES HEARD IN LEFT LOBES. S1S2 WITH A RATE OF 68 ON MONITOR. ABDOMEN TIGHT, BOWEL SOUNDS HYPOACTIVE X4. RECTAL TUBE IN PLACE WITH BROWN DIARRHEA NOTED. GENERALIZED, WEEPIN EDEMA IN EXTREMITIES, PROPPED ON PILLOWS AND ABSORPTION PADS. MALONE DRAINING DARK SUZE URINE TO GRAVITY. SCROTAL SACK VERY SWOLLEN, PROPPED ON TOWEL. PERIPHERAL PULSES +2, CAP REFILL < 3 SECONDS. RIGHT SUBCLAVIAN CL DRESSING C/D/I. SEE IV DRIPS FLOWSHEET FOR DRIPS. VSS, WILL MONITOR PATIENT.
--- NOTE | 2017-01-27 21:10 | NUR ---
MEDS GIVEN. PATIENT SHAKES HEAD YES STATING THAT HE'S COMFORTABLE. VSS, WILL MONITOR.
--- NOTE | 2017-01-27 23:00 | NUR ---
REASSESSMENT COMPLETE, PATIENT STILL OFF SEDATION AND IS BECOMING MORE ALERT. HAS EYES OPEN AND WILL TRY TO COMMUNICATE WITH ME. FOLLOWS COMMANDS AND MOVES EXTREMITIES WITH EASE. BECOMES AGITATED AT TIMES BUT CALMS WHEN REORIENTED. RR CALM AND NONLABORED. NO OTHER ACUTE CHANGES. VSS.
[2017-01-28] VITALS (68 sets, daily range): BP systolic 84–114; BP diastolic 57–84
--- NOTE | 2017-01-28 00:30 | NUR ---
TUBE FEEDING CHANGED PER PROTOCOL.
--- NOTE | 2017-01-28 00:45 | NUR ---
SEDATION HAD TO BE STARTED BACK AT LOW DOSE FOR AGITATION. RR INCREASED AND PATIENT THRASHING AROUND IN BED, JERKING HEAD BACK AND FORTH. WILL MONITOR.
--- NOTE | 2017-01-28 02:30 | NUR ---
BED BATH GIVEN, LINEN CHANGE COMPLETED. PATIENT TOLERATED WELL.
--- NOTE | 2017-01-28 03:00 | NUR ---
REASSESSMENT COMPLETE, NO CHANGES FROM PREVIOUS.
[2017-01-28 04:52] LABS: BASOPHILS 0.8 % (0-2); EOSINOPHILS 1.9 % (0-7); HEMATOCRIT 27.9 % (42.0-54.0); HEMOGLOBIN 9.3 g/dL (13.5-17.5); IMMATURE GRANULOCYTES 1.6 % (0-5); LYMPHOCYTES 8.1 % (15-50); MCH 28.9 pg (26.0-34.0); MCHC 33.3 g/dL (31.0-37.0); MCV 86.6 fL (80.0-100.0); MONOCYTES 8.2 % (2-11); NEUTROPHILS 79.4 % (40-80); PLATELET COUNT 86 10x3/uL (130-400); RBC 3.22 10x6/uL (4.20-6.10); RDW 21.5 % (11.5-14.5)
[2017-01-28 04:58] LABS: WBC 10.4 10x3/uL (4.8-10.8)
--- NOTE | 2017-01-28 05:00 | NUR ---
VSS, PATIENT AWAKE AND ALERT, FOLLOWS COMMANDS. NODS HEAD YES WHEN ASKED IF COMFORTABLE.
[2017-01-28 05:15] LABS: ALBUMIN 2.4 g/dL (3.4-5.0); ANION GAP 13.3 mmol/L (8-16); CALCIUM 8.2 mg/dL (8.5-10.1); CARBON DIOXIDE 21.3 mmol/L (21.0-32.0); CREATININE - SERUM 2.3 mg/dL (0.6-1.3); POTASSIUM - SERUM 3.6 mmol/L (3.5-5.1); VANCOMYCIN - RANDOM 20.3 ug/mL (10.0-20.0)
--- NOTE | 2017-01-28 14:40 | NUR ---
PATIENT OPENS EYES, MAKES EYE CONTACT NODES HEAD AT TIMES TO QUESTIONS DOES NOT MOVE EXTREMITIES ON REQUEST. SKIN WARM AND DRY. WEEPING IN UPPER EXTREMITIES. LOWER EXTREMITIES 3+ EDEMA. BILATERAL LUNG SOUNDS EQUAL AND CONGESTED. ABD FIRM WITH BOWELSOUNDS. RECTAL TUBE IN PLACE. SCD ON LOWER LEGS. RIGHT SUBCLAVIAN DRESSING INTACT. INFUSING WITH D51/4NS WITH 1 AMP OF BICARB AT 75 ML HOUR. DIPRIVAN AT 5 MCG/KG/MIN. PROTONIX GTT AT 8 MG HOUR. LEVOPHED TURNED ON TO MAINTAIN SYS OF 90. MALONE CATH PATENT DRAINING DARK SUZE URINE SMALL AMOUNTS. MONITOR SR. FAMILY CALLED TO CHECK ON PATIENT. NO VISITORS. DR. LUNDBERG HERE VENT CHANGE SMADE PEEP TO 7 TV TO 500.
--- NOTE | 2017-01-28 19:30 | NUR ---
REPORT RECIEVED. ASSESSMENT COMPLETED. PT SEDATED ON VENT, PT REPOSNED TO VERBAL COMMUNICATION. VSS. INTUBATED WITH 7.5 23CM MIDLINE AT THE LIP. RATE OF 20, TV OF 500, PEEP OF 5.0. PT BREATH SOUNDS ARE CRACKLES IN ALL LOBES. S1S2 NORMAL SINUS RHYTHM OF 66. FEEDING PUMP GOING AT 10ML/HR VITAL 1.0. STOMACH IS DISTENDED TO APPEREANCE WITH HYPO ACTIVE BOWEL SOUNDS IN ALL 4 QUADRANTS. SCROTUM EDEMATOUS AND SHINY. PEDAL PULSES WEAK TO PALPATION. WILL CONTINUE TO MONITOR.
--- NOTE | 2017-01-28 21:00 | NUR ---
PT SEDATED ON VENT ORAL CARE DONE. POSITIONED FOR COMFORT. NO VISITORS. WILL CONTINUE TO MONITOR.
--- NOTE | 2017-01-28 22:03 | NUR ---
REPORT RECIEVED. ASSESSMENT COMPLETED. PT SEDATED ON VENT, PT RESPONDS TO VERBAL COMMUNICATION. VSS. INTUBATED WITH A 7.5 ETT TUBE MIDLINE AT THE LIP.VENT SETTING RATE OF 20, TV OF 500, PEEP OF 5.0. PT BREATH SOUNDS CRACKLES IN ALL LOBES. S1S2 HEART RHYTHM AT 66. ON FEEDING PUMP VITAL 1.0 RUNNING AT 10 ML/HR. STOMACH IS DISTENDED TO APPERANCE WITH HYPO ACTIVE BOWEL SOUNDS. SCROTUM IS EDEMATOUS AND SHINY. PEDAL PULSES ARE WEAK TO PALPATION. WILL CONTINUE TO MONITOR.
--- NOTE | 2017-01-28 23:00 | NUR ---
ASSESSMENT COMPLTED. VSS. LEVAPHED TURNED OFF MAP AND BP IN THE PARAMETERS. MAP IS 79. ORAL CARE DONE POSITIONED FOR COMFORT.
[2017-01-29] VITALS (34 sets, daily range): BP systolic 80–105; BP diastolic 51–6680
--- NOTE | 2017-01-29 01:00 | NUR ---
PT SEDATED ON VENT. VSS. POSITIONED FOR COMFORT WILL CONTINUE TO MONITOR.
--- NOTE | 2017-01-29 03:00 | NUR ---
REASSESSMENT COMPLETED. ORAL CARE DONE POSITIONED FOR COMFORT. WILL CONTINUE TO MONITOR.
[2017-01-29 04:50] LABS: BASOPHILS 1.3 % (0-2); EOSINOPHILS 2.4 % (0-7); HEMATOCRIT 26.7 % (42.0-54.0); HEMOGLOBIN 8.8 g/dL (13.5-17.5); IMMATURE GRANULOCYTES 1.8 % (0-5); MCH 28.6 pg (26.0-34.0); MCV 86.7 fL (80.0-100.0); MONOCYTES 10.5 % (2-11); PLATELET COUNT 84 10x3/uL (130-400); RBC 3.08 10x6/uL (4.20-6.10); RDW 21.5 % (11.5-14.5); WBC 8.5 10x3/uL (4.8-10.8)
--- NOTE | 2017-01-29 05:00 | NUR ---
PT SEDATED ON VENT POSITIONED FOR COMFORT. VSS. WILL COMTINUE TO MONITOR.
[2017-01-29 05:03] LABS: ALBUMIN 2.3 g/dL (3.4-5.0); ANION GAP 13.4 mmol/L (8-16); BILIRUBIN - TOTAL 13.6 mg/dL (0.2-1.3); CALCIUM 7.8 mg/dL (8.5-10.1); CARBON DIOXIDE 21.9 mmol/L (21.0-32.0); CREATININE - SERUM 2.4 mg/dL (0.6-1.3); POTASSIUM - SERUM 3.3 mmol/L (3.5-5.1); PROTEIN - SERUM 5.9 g/dL (6.4-8.2); VANCOMYCIN - RANDOM 15.1 ug/mL (10.0-20.0)
--- NOTE | 2017-01-29 07:00 | NUR ---
PT SEDATED ON VENT, SECURED AT 24 AT LIPLINE, MIDLINE, TITRATING LEVOPHED FOR SYSTOLIC BP,ON DIPROVAN, RECTAL TUBE AND MALONE IN PLACE, GENERALIZED EDEMA WITH SOME WEEPING, REPOSITIONED, ORAL CARE AND SUCTIONING PROVIDED
--- NOTE | 2017-01-29 09:00 | NUR ---
PT REPOSITIONED, ORAL CARE AND SUCTIONING PROVIDED, VSS WILL CONTINUE TO MONITOR
--- NOTE | 2017-01-29 09:34 | NUR ---
Nutrition follow-up: Vital 1.0 now @ 20 ml/hr; had been turned off for some reason. Diprivan @ 8 ml/hr Labs reviewed Wt: 201# TF slowly advancing to goal rate of 75 ml/hr RDN following.
--- NOTE | 2017-01-29 11:00 | NUR ---
PT SEDATED ON VENT, REPOSITIONED, ORAL CARE AND SUCTIONING PROVIDED, NO SIGNS OF PAIN, DR GAONA SPOKEK WITH SON ABOUT A TRACH AND SON IN AGREEMENT NO NEEDS NOTED VSS
--- NOTE | 2017-01-29 13:00 | NUR ---
PT SEDATED ON VENT, PARTIAL LINEN CHANGE AND BATH GIVEN, REPOSITONED, SUCTIONED AND ORAL CARE PROVIDED, NO SIGNS OF PAIN, VSS, LEVOPHED STOPPED AT 1100 AND BP REMAINS STABLE, WILL CONTINUE TO MONITOR
--- NOTE | 2017-01-29 15:00 | NUR ---
PT SEDATED ON VENT, REPOSITIONED, ORAL CARE AND SUCTIONING PROVIDED, VSS, WILL CONTINUE TO MONITOR
--- NOTE | 2017-01-29 17:00 | NUR ---
PT SSEDATED ON VENT, VSS, NO SIGNS OF PAIN, REPOSITIONED, ORAL CARE AND SUCTIONING PROVIDED, WILL CONTINUE TO MONITOR
--- NOTE | 2017-01-29 19:00 | NUR ---
SEDATED ON VENT WITH DIPRIVAN AT 10 MCG/KG/MIN. SEE FLOW SHEET FOR VENT SETTINGS. OPENS EYES SPONTANEOUSLY AND WITHDRAWS TO PAIN. 7.5 CM ETT AT 24 CM RIGHT LIP LINE. OGT FEEDINGS OF VITAL 1.0 CESAR INFUSING AT 30 MLS/HR, ASSESSED FOR PATENTCY, NO RESIDUAL OBTAINED, RATE CHANGED TO 40 MLS/HR PER DOCTORS ORDERS. TELEMETRY MONITORING SINUS RHYTHM RATE OF 63. S1S1 PRESENT. CRACKLES NOTED ON ALL LOBES. BS ACTIVE X4. SCROTAL EDEMA NOTED. MALONE CATHETER IN PLACE DRAINING SUZE URINE. RECTAL TUBE IN PLACE-DIARRHEA. GENERALIZED EDEMA. +4 PITTING EDEMA BILAT ON LOWER EXTREMITIES. CAPILLARY REFILL IN UPPER AND LOWER EXTREMITIES <3 SECS. SEE FLOW SHEET FOR DETAILS.
--- NOTE | 2017-01-29 21:00 | NUR ---
SEDATED ON VENT. VSS. NO VISITORS AT THIS TIME. WILL CONTINUE TO MONITOR.
--- NOTE | 2017-01-29 23:00 | NUR ---
SEDATED ON VENT. REASSESSMENT COMPLETE, SEE FLOW SHEET FOR DETAILS. ORAL CARE PROVIDED. VSS. WILL CONTINUE TO MONITOR.
[2017-01-30] VITALS (25 sets, daily range): BP systolic 84–157; BP diastolic 58–87
--- NOTE | 2017-01-30 01:00 | NUR ---
SEDATED ON VENT. ORAL CARE PROVIDED. ORAL SUCTION OF YELLOW MUCOUS. REPOSITIONED FOR COMFORT. VSS. WILL CONTINUE TO MONITOR. BED IN LOWEST POSITION.
--- NOTE | 2017-01-30 03:00 | NUR ---
SEDATED ON VENT. REASSESSMENT COMPLETE SEE FLOW SHEET FOR DETAILS. ORAL CARE PROVIDED. COMPLETE BED BATH GIVEN WITH SOAP AND WATER. REPOSITIONED FOR COMFORT. VSS. WILL CONTINUE TO MONITOR. BED IN LOWEST POSITION.
--- NOTE | 2017-01-30 05:00 | NUR ---
SEDATED ON VENT. VSS. REPOSITIONED FOR COMFORT. ORAL CARE PROVIDED. WILL CONTINUE TO MONITOR.
[2017-01-30 05:01] LABS: BASOPHILS 1.3 % (0-2); EOSINOPHILS 1.9 % (0-7); IMMATURE GRANULOCYTES 1.6 % (0-5); LYMPHOCYTES 7.8 % (15-50); MCH 28.8 pg (26.0-34.0); MCHC 33.3 g/dL (31.0-37.0); MCV 86.3 fL (80.0-100.0); MONOCYTES 9.5 % (2-11); NEUTROPHILS 77.9 % (40-80); PLATELET COUNT 113 10x3/uL (130-400); RBC 3.13 10x6/uL (4.20-6.10); WBC 9.1 10x3/uL (4.8-10.8)
[2017-01-30 05:12] LABS: ANION GAP 13.6 mmol/L (8-16); CALCIUM 7.9 mg/dL (8.5-10.1); CARBON DIOXIDE 21.1 mmol/L (21.0-32.0); CREATININE - SERUM 2.4 mg/dL (0.6-1.3); POTASSIUM - SERUM 3.7 mmol/L (3.5-5.1)
[2017-01-30 05:15] LABS: APTT 45.6 SECONDS (22.8-39.4); INR 2.26 (0.85-1.17); PROTIME 25.1 SECONDS (11.6-15.0)
--- NOTE | 2017-01-30 06:16 | NUR ---
SEDATED ON VENT. NO VISITORS AT THIS TIME. VSS. BED IN LOWEST POSITION. WILL CONTINUE TO MONITOR.
--- NOTE | 2017-01-30 07:00 | NUR ---
PT REPORT REC'D, PT CARE ASSUMED. PT SEDATED ON VENT, PT OPENS EYES, DOES NOT FOLLOW COMMANDS. RIGHT SUBCLAVIAN CVL WITH FLUIDS INFUSING, SEE FLOW SHEET, DRESSING CDI. OGT WITH VITAL 1.0 INFUSING AT 40CC/HR, PLACEMENT CHECKED WITH AUSCULATION. ABDOMEN DISTENDED AND FIRM, RECTAL TUBE WITH DIARRHEA, MALONE CATHETER FREE OF KINKS TO GRAVITY WITH SUZE URINE RETURN. SCROTAL EDEMA NOTED, SHIFT ASSESSMENT COMPLETED, SEE FLOW SHEET. ROOM FREE OF CLUTTER, CALL LIGHT IN REACH, WILL CONTINUE TO MONITOR PT.
--- NOTE | 2017-01-30 07:48 | NUR ---
SPOKE WITH PTS BROTHER, CONSENT FOR TRACH PLACEMENT TOMORROW AND PEG PLACEMENT FOR, MONIQUE JOVEL RN SPOKE WITH PTS BROTHER TO WITNESS CONSENTS.
--- NOTE | 2017-01-30 08:20 | NUR ---
DR. DELACRUZ AT THE BEDSIDE FOR PEG PLACEMENT, OGT PULLED. PT TOLERATED WELL, WILL CONTINUE TO MONITOR PT.
--- NOTE | 2017-01-30 09:39 | NUR ---
NUTRITION MONITORING & EVAL CHART REVIEWED, SPOKE WITH NURSING. PT NOW WITH PEG TUBE. CLEARED TO USE IN AM PER MD ORDER. WILL ENTER NURSING MESSAGE IN AM TO RESUME AND ADVANCE PREVIOUS TUBE FEEDS VITAL 1.0 TO GOAL RATE 75 CC/HR WITH 25 CC H2O FLUSH Q HOUR. RD FOLLOWING
--- NOTE | 2017-01-30 10:59 | NUR ---
PTS BROTHER JESUSITA AGUERO CALLED, HAD PASSWORD, UPDATE GIVEN, WILL CONTINUE TO MONITOR PT.
--- NOTE | 2017-01-30 11:00 | NUR ---
PT SEDATED ON VENT, OPENS EYES SPONTANEOUSLY, DOES NOT FOLLOW COMMANDS. REPOSITIONED PT, PROPPED WITH PILLOWS, VSS, REASSESSMENT COMPLETED, SEE FLOW SHEET. ROOM FREE OF CLUTTER, CALL LIGHT IN REACH, WILL CONTINUE TO MONITOR PT.
--- NOTE | 2017-01-30 13:00 | NUR ---
REPOSITIONED PT, RECTAL TUBE DEFLATED AND OUT, NEW RECTAL TUBE INSERTED, 45CC OF SALINE TO INFLATE BALLOON, FECAL BAG TO GRAVITY. PROPPED PT WITH PILLOWS, VSS, WILL CONTINUE TO MONITOR PT.
--- NOTE | 2017-01-30 15:10 | NUR ---
PT AT THE BEDSIDE, ALL QUESTIONS ANSWERED, VSS, WILL CONTINUE TO MONITOR PT.
--- NOTE | 2017-01-30 19:00 | NUR ---
SEDATED ON VENT WITH DIPRIVAN AT 25 MCG/KG/MIN, TELEMETRY MONITORING SINUS BRADYCARDIA RATE OF 55, TURNED DIPRIVAN OFF, WILL CONTINUE TO MONITOR HR. O2 SAT OF 97%. BP 95/67 MAP 78. CVP 19. AXILLARY TEMPERATURE 95.7, RECTAL TUBE DISLODGED NO TRAUMA NOTED. ASSESSED RECTAL TEMP OF 96.4, BEAR HUGGER APPLIED. RECTAL TUBE REINSERTED. SEE FLOW SHEET FOR VENT SETTINGS. BS ACTIVE X4. PEG TUBE IN PLACE, DRESSING INTACT SCANT AMOUNT OF BLOODY DRAINAGE NOTED, DRESSING CHANGED. MALONE CATHETER IN PLACE, DRAINING SUZE COLORED URINE. SCDS ON. CAPILLARY REFILL IN UPPER AND LOWER EXTREMITIES <3 SECS. RADIAL AND PEDAL PULSES PALPABLE. SEE FLOW SHEET FOR COMPLETE ASSESSMENT.
--- NOTE | 2017-01-30 19:15 | NUR ---
MONITORING HR 1914 HR 50. BP 95/67 MAP 78. O2 SAT 97%. CVP 1929 HR 52. BP 95/73 MAP 83. O2 SAT 97%. CVP 1944 HR 55. BP 105/72 MAP 83. O2 SAT 97%. CVP 20
--- NOTE | 2017-01-30 21:00 | NUR ---
VSS. WILL CONTINUE TO MONITOR. ORAL CARE PROVIDED. BED IN LOWEST POSITION.
--- NOTE | 2017-01-30 23:00 | NUR ---
REASSESSMENT COMPLETE. VSS. TEMP 96.5 AXILLARY, BEAR HUGGER ON. WILL CONTINUE TO MONITOR. DIPRIVAN RATE CHANGED TO 6 MCG/KG/MIN. BED IN LOWEST POSITON. ORAL CARE PROVIDED.
[2017-01-31] VITALS (24 sets, daily range): BP systolic 79–113; BP diastolic 50–73
--- NOTE | 2017-01-31 01:00 | NUR ---
SEDATED ON VENT WITH DIPRIVAN AT 6 MCG/KG/MIN. VSS. WILL CONTINUE TO MONITOR. BED IN LOWEST POSITION.
--- NOTE | 2017-01-31 03:00 | NUR ---
REASSESSMENT COMPLETE. SEE FLOW SHEET FOR DETAILS. AXILLARY TEMP 99.3, BEAR HUGGER TURNED OFF. VSS. BED IN LOWEST POSITION. ORAL CARE PROVIDED. COMPLETE BED BATH WITH SOAP AND WATER. BED IN LOWEST POSITION. WILL CONTINUE TO MONITOR.
[2017-01-31 04:10] LABS: BASOPHILS 1.6 % (0-2); EOSINOPHILS 1.8 % (0-7); HEMATOCRIT 25.9 % (42.0-54.0); HEMOGLOBIN 8.6 g/dL (13.5-17.5); LYMPHOCYTES 9.1 % (15-50); MCH 28.4 pg (26.0-34.0); MCHC 33.2 g/dL (31.0-37.0); MCV 85.5 fL (80.0-100.0); MEAN PLATELET VOLUME 10.8 fL (7.4-10.4); MONOCYTES 9.3 % (2-11); NEUTROPHILS 77.2 % (40-80); PLATELET COUNT 132 10x3/uL (130-400); RBC 3.03 10x6/uL (4.20-6.10); RDW 21.7 % (11.5-14.5); WBC 9.7 10x3/uL (4.8-10.8)
[2017-01-31 04:19] LABS: APTT 46.1 SECONDS (22.8-39.4); INR 2.34 (0.85-1.17); PROTIME 25.8 SECONDS (11.6-15.0)
[2017-01-31 04:23] LABS: ANION GAP 15.5 mmol/L (8-16); BILIRUBIN - TOTAL 13.87 mg/dL (0.2-1.3); CALCIUM 8.2 mg/dL (8.5-10.1); CARBON DIOXIDE 21.2 mmol/L (21.0-32.0); CREATININE - SERUM 2.3 mg/dL (0.6-1.3); POTASSIUM - SERUM 3.7 mmol/L (3.5-5.1); PROTEIN - SERUM 6.3 g/dL (6.4-8.2)
[2017-01-31 04:24] LABS: ALBUMIN 3.5 g/dL (3.4-5.0)
--- NOTE | 2017-01-31 05:00 | NUR ---
SEDATED ON VENT. VSS. NO CHANGES NOTED. BED IN LOWEST POSITION. WILL CONTINUE TO MONITOR.
--- NOTE | 2017-01-31 06:00 | NUR ---
SEDATED ON VENT. VSS. NO VISITORS AT THIS TIME. WILL CONTINUE TO MONITOR.
--- NOTE | 2017-01-31 07:00 | NUR ---
PT REPORT REC'D, PT CARE ASSUMED. PT SEDATED ON VENT, OPENS EYES SPONTANEOUSLY, DOES NOT FOLLOW COMMANDS. BILAT UPPER EXTREMITIES WEEPING, SCROTUM SWOLLEN, BILAT LOWER EXTREMITIES 4+ PITTING EDEMA. RECTAL TUBE INTACT, BROWN DIARRHEA DARAINGE. MALONE CATHETER FREE OF KINKS TO GRAVITY WITH SUZE URINE RETURN. PEG TUBE TO GRAVITY WITH YELLOW/GREEN DRAINAGE. RIGHT SUBCLAVIAN CVL WITH FLUIDS INFUSING, SEE FLOW SHEET. REPOSITIONED PT, PROPPED WITH PILLOWS. ROOM FREE OF CLUTTER, BED LOCKED IN LOWEST POSITION, ROOM CLOSE TO NURSES STATION, WILL CONTINUE TO MONITOR PT.
--- NOTE | 2017-01-31 07:00 | NUR ---
PT REPORT REC'D, PT CARE ASSUMED, PT SEDATED ON VENT, OPENS EYES SPONTANEOUSLY, DOES NOT FOLLOW COMMANDS. BILAT UPPER EXTREMTIES WEEPING, SCROTUM SWOLLEN, BILAT LOWER EXTREMITIES 4+PITTING EDEMA. RECTAL TUBE INTACT, BROWN DIARRHEA DRAINAGE, MALONE CATHETER FREE OF KINKS TO GRAVITY WITH CLEAR YELLOW URINE RETURN. PEG TUBE TO GRAVITY WITH YELLOW/GREEN DRAINAGE. RIGHT SUBCLAVIAN CVL WITH FLUIDS INFUSING, SEE FLOW SHEET. SHIFT ASSESSMENT COMPLETED, SEE FLOW SHEET. ROOM FREE OF CLUTTER, CALL LIGHT IN REACH, WILL CONTINUE TO MONITOR PT.
--- NOTE | 2017-01-31 09:00 | NUR ---
PT'S BROTHER JESUSITA CALLED FOR AN UPDATE, PASSWORD REC'D, UPDATE GIVEN, "WILL YOU CALL ME WHEN YOU KNOW AROUND THE TIME THAT THEY WILL TAKE MY BROTHER FOR THE TRACH PLACEMENT, IT IS OKAY TO LEAVE A MESSAGE IF I DO NOT ANSWER." REPOSITIONED PT, PROPPED WITH PILLOWS, VSS, WILL CONTINUE TO MONITOR PT.
--- NOTE | 2017-01-31 11:00 | NUR ---
REPOSITIONED PT, PROPPED WITH PILLOWS, VSS, REASESSMENT COMPLETED, SEE FLOW SHEET. ROOM FREE OF CLUTTER, CALL LIGHT IN REACH, WILL CONTINUE TO MONITOR PT.
--- NOTE | 2017-01-31 13:54 | EC ---
PATIENT:DARYN AGUERO DATE OF SERVICE: 01/19/17 SEX: M MEDICAL RECORD: [id number] DATE OF : 59 LOCATION:[facility] D230 AGE OF PATIENT: 62 ADMISSION DATE: 01/19/17 REFERRING PHYSICIAN: INTERPRETING PHYSICIAN: RORO ZABALA M.D. ECHOCARDIOGRAM REPORT ECHO CHARGES 4 ECHO COMPLETE CLINICAL DIAGNOSIS: MRSA BACTEREMIA ECHOCARDIOGRAPHIC MEASUREMENTS (adult normal given) AC root (d.<3.7cm) 3.5 LV Septum d (<1.2 cm> 1.4 Valve Excursion 1.6 LV Septum (systole) 1.9 Left Atria (s.<4.0cm> 4.1 LVPW d(<1.2cm) 1.2 RV (d.<2.3cm) 3.1 LVPW (sytole) 1.9 LV diastole(<5.6CM) 4.8 MV E-F(>70mm/sec) LV systole 2.1 LVOT Diameter 1.6 MV exc.(>10mm) Est.ejection fraction (50-75%) Pericardial Effusion N DOPPLER: LVIT A 134 E 159 LA RVSP 54.0 LVOT 207 AOP1/2T Asc. Ao 226 RVOT 89.0 RA PA 170 AV Gradient Peak 21.0 AV Mean 11.2 AV Area 1.8 MV Gradient Peak 12.2 MV Mean 4.8 MV Area COMMENTS: Human Resources Intern: Hal FRIEDMANOE Gluing Machine Adjuster:Mejia Zabala TAPE# PACS DATE OF SERVICE: 01/24/2017 REFERRING PHYSICIAN: Dr. Moe. INDICATION: Bacteremia. DESCRIPTION: Left ventricle demonstrates left ventricular hypertrophy. No wall motion abnormalities are seen. Estimated ejection fraction is 60%. Mitral valve is structurally normal. There is trivial regurgitation seen. I do not see any vegetations on the leaflets. Left atrium is mildly dilated. The aortic ECHOCARDIOGRAM REPORT [id number] DARYN AGUERO valve leaflets are thickened. There is no regurgitation noted. Right ventricle is mildly dilated. There does appear to be moderate ____ noted in the apex. I do not see any vegetations or mass. Tricuspid valve is normal. There is mild regurgitation seen. Right ventricular systolic pressure is elevated at 54 mmHg. There is no pericardial effusion noted. IMPRESSION: 1. Left ventricular hypertrophy with ejection fraction of 60%. 2. Trivial mitral regurgitation. 3. Mild aortic stenosis. 4. Mild tricuspid regurgitation with elevated pulmonary pressures. 5. I do not see any vegetations on the mitral, aortic or tricuspid valves. TRANSINT:[id number] Voice Confirmation ID: [id number] DOCUMENT ID: [id number] RORO ZABALA M.D. at 1354 CC: [id number] DICTATION DATE: 01/24/17 163 WINDOWS AND DOORS INSTALLER: 01/24/17 2143 ADM IN [facility] [address] [id number]
--- NOTE | 2017-01-31 15:00 | NUR ---
COMPLETE BED BATH AND LINEN CHANGE, PT TOLERATED WELL, VSS, REASSESSMENT COMPLETED, SEE FLOW SHEET. ROOM FREE OF CLUTTER, REPOSITIONED PT, PROPPED WITH PILLOWS, WILL CONTINUE TO MONITOR PT.
--- NOTE | 2017-01-31 16:15 | NUR ---
DR. DELACRUZ AT THE BEDSIDE FOR TRACH PLACEMENT
--- NOTE | 2017-01-31 17:00 | NUR ---
PTS BROTHER JESUSITA CALLED WITH PASSWORD "RED", UPDATE GIVEN, WILL CONTINUE TO MONITOR PT.
[2017-01-31 17:13] LABS: AEROBE ID Final report (())
--- NOTE | 2017-01-31 19:00 | NUR ---
SEDATED ON VENT WITH DIPRIVAN AT 15 MCG/KG/MIN. SEE FLOW SHEET FOR VENT SETTINGS. TRACH IN PLACE. S1S2 PRESENT. TELEMETRY MONITORING SINUS RHYTHM. PEG TUBE TO GRAVITY, DRESSING CHANGED, YELLOW/GREEN DRAINAGE NOTED. MALONE CATHETHER DRAINING DARK, SUZE URINE. RECTAL TUBE-DIRRHEA. SCDs ON. SEE FLOW SHEET FOR COMPLETE ASSESSMENT. WILL CONTINUE TO MONITOR.
--- NOTE | 2017-01-31 19:40 | NUR ---
PT MOM CALLED, NOELLE AGUERO, PASSWORD RECEIVED, WANTING AN UPDATE, UPDATE GIVEN.
--- NOTE | 2017-01-31 21:00 | NUR ---
SEDATED ON VENT. VSS. WILL CONTINUE TO MONITOR.
--- NOTE | 2017-01-31 23:00 | NUR ---
REASSESSMENT COMPLETE, REFER TO FLOW SHEET. VSS. NO CHANGES NOTED. WILL CONTINUE TO MONITOR.
[2017-02-01] VITALS (22 sets, daily range): BP systolic 81–113; BP diastolic 46–73
--- NOTE | 2017-02-01 01:00 | NUR ---
SEDATED ON VENT, DIPRIVAN DECREASED TO 7 MCG/KG/MIN, BP 81/50 MAP 62. WILL CONTINUE TO CLOSELY MONITOR.
--- NOTE | 2017-02-01 03:00 | NUR ---
REASSESSMENT COMPLETE, SEE FLOW SHEET FOR DETAILS. SEDATED ON VENT. VSS. WILL CONTINUE TO MONITOR.
--- NOTE | 2017-02-01 03:40 | NUR ---
LARGE BRIGHT RED STOOL WITH CLOTS NOTED. RECTAL TUBE REMOVED. COMPLETE BB LINEN CHANGE ADM. RESP AT BEDSIDE. ABG OBTAINED. H&H READ BACK 6 AND 19. AWAITING AM LABS TO CONFIRM. 4990 LABS RECIEVED. PAGED PHYSICIAN O/C FOR ZAIN. AWAITING ORDERS.
[2017-02-01 04:30] LABS: BASOPHILS 1.7 % (0-2); EOSINOPHILS 1.8 % (0-7); IMMATURE GRANULOCYTES 1.1 % (0-5); MCH 28.8 pg (26.0-34.0); MCHC 33.3 g/dL (31.0-37.0); MCV 86.5 fL (80.0-100.0); MEAN PLATELET VOLUME 10.5 fL (7.4-10.4); MONOCYTES 8.7 % (2-11); NEUTROPHILS 78.7 % (40-80); PLATELET COUNT 152 10x3/uL (130-400); RBC 2.22 10x6/uL (4.20-6.10); RDW 22.2 % (11.5-14.5); WBC 12.3 10x3/uL (4.8-10.8)
[2017-02-01 04:31] LABS: HEMATOCRIT 19.2 % (42.0-54.0); HEMOGLOBIN 6.4 g/dL (13.5-17.5)
[2017-02-01 04:45] LABS: ALBUMIN 2.7 g/dL (3.4-5.0); ANION GAP 16.9 mmol/L (8-16); BILIRUBIN - TOTAL 13.31 mg/dL (0.2-1.3); CARBON DIOXIDE 22.1 mmol/L (21.0-32.0); CREATININE - SERUM 2.6 mg/dL (0.6-1.3); PROTEIN - SERUM 5.8 g/dL (6.4-8.2)
--- NOTE | 2017-02-01 05:00 | NUR ---
SEDATED ON VENT. VSS. WILL CONTINUE TO MONITOR.
--- NOTE | 2017-02-01 06:00 | NUR ---
NO VISITORS AT THIS TIME. VSS. WILL CONTINUE TO MONITOR.
--- NOTE | 2017-02-01 07:00 | NUR ---
PT REPORT REC'D, PT CARE ASSUMED. PT SEDATED ON VENT, OPENS EYES, VSS. RIGHT SUBCLAVIAN CVL WITH FLUIDS INFUSING, SEE FLOW SHEET, DRESSING CDI. PEG TUBE TO GRAVITY WITH GREEN/YELLOW DRAINAGE. MALONE CATHETER FREE OF KINKS TO GRAVITY WITH SUZE URINE RETURN. RESPIRATORY AT THE BEDSIDE, PT HAD BLOODY BOWEL MOVEMENT, COMPLETE LINEN CHANGE AND BATH GIVEN. SHIFT ASSESSMENT COMPLETED, SEE FLOW SHEET. ROOM FREE OF CLUTTER, CALL LIGHT IN REACH, BED LOCKED IN LOWEST POSITION, WILL CONTINUE TO MONITOR PT.
--- NOTE | 2017-02-01 07:15 | NUR ---
PAGED DR. LOU TO INFORM OF BLOODY STOOLS.
--- NOTE | 2017-02-01 08:28 | NUR ---
CONTACTED DR. LOU OF BLOODY STOOLS AND H&H, ORDERS REC'D, WILL CONTINUE TO MONITOR PT.
--- NOTE | 2017-02-01 09:45 | NUR ---
TRANSFERRED PT VIA BED TO NUC. MED, CHRISTIAN RT AT THE BEDSIDE.
--- NOTE | 2017-02-01 11:15 | NUR ---
REC'D PT FROM NUC MED, CHRISTIAN RT AT THE BEDSIDE, VSS, WILL CONITNUE TO MONITOR PT.
--- NOTE | 2017-02-01 11:30 | NUR ---
BEGAN FIRST UNIT OF PRBC'S, SEE BLOOD FLOW SHEET. WILL CONTINUE TO MONITOR PT.
--- NOTE | 2017-02-01 13:30 | NUR ---
TRANSFERRED PT TO CT, CHRISTIAN RT AT THE BEDSIDE, WILL CONTINUE TO MONITOR PT.
--- NOTE | 2017-02-01 13:45 | NUR ---
PT RETURNED TO UNIT, PT TOLERATED WELL, WILL CONTINUE TO MONITOR PT.
--- NOTE | 2017-02-01 14:00 | NUR ---
FIRST UNIT OF PRBC'S FINISHED,SEE FLOW SHEET. PT TOLERATED WELL, WILL CONTINUE TO MONITOR PT.
--- NOTE | 2017-02-01 14:15 | NUR ---
BEGAN SECOND UNIT OF PRBC'S, SEE FLOW SHEET. WILL CONTINUE TO MONITOR PT.
--- NOTE | 2017-02-01 15:00 | NUR ---
REPOSITIONED PT, PROPPED WITH PILLOWS, VSS, REASESSMENT COMPLETED, SEE FLOW SHEET. ROOM FREE OF CLUTTER, BED LOCKED IN LOWEST POSITION, WILL CONTINUE TO MONITOR PT.
--- NOTE | 2017-02-01 15:37 | NUR ---
DR. LOU AT THE BEDSIDE
--- NOTE | 2017-02-01 16:30 | NUR ---
2ND UNIT OF PRBC'S COMPLETED, SEE FLOW SHEET. PT TOLERATED WELL, VSS, WILL CONTINUE TO MONITOR PT.
[2017-02-01 17:14] LABS: HEMATOCRIT 23.1 % (42.0-54.0); HEMOGLOBIN 7.8 g/dL (13.5-17.5)
--- NOTE | 2017-02-01 20:04 | NUR ---
REPORT RECIEVED. ASSESSMENT COMPLETE PER FLOW SHEET. REFER FOR FINDINGS. VSS. PARTIAL BB LINEN CHANGE ADM. LARGE GREEN BM NOTED. WILL CONITNUE TO MONITOR
--- NOTE | 2017-02-01 23:00 | NUR ---
REASSESSMENT COMPLETE PER FLOW SHEET. VSS. NO NEW CHANGES. WILL CONTINUE TO ONITOR
[2017-02-02] VITALS (24 sets, daily range): BP systolic 88–178; BP diastolic 58–90
--- NOTE | 2017-02-02 01:21 | NUR ---
COMPLETE BB LINEN CHANGE ADM. NO NEW CHANGES. LARGE LIQUID GREEN BM NOTED. WILL CONTINUE TO MONITOR
--- NOTE | 2017-02-02 03:36 | NUR ---
REASSESSMENT COMPLETE PER FLOW SHEET. VSS. NO NEW CHANGES. WILL CONTINUE TO MONITOR
[2017-02-02 05:19] LABS: BASOPHILS 0.7 % (0-2); EOSINOPHILS 1.8 % (0-7); IMMATURE GRANULOCYTES 0.8 % (0-5); LYMPHOCYTES 5.8 % (15-50); MCH 29.6 pg (26.0-34.0); MCHC 34.9 g/dL (31.0-37.0); MCV 84.8 fL (80.0-100.0); MEAN PLATELET VOLUME 10.3 fL (7.4-10.4); MONOCYTES 9.5 % (2-11); NEUTROPHILS 81.4 % (40-80); PLATELET COUNT 153 10x3/uL (130-400); RDW 18.5 % (11.5-14.5); WBC 13.4 10x3/uL (4.8-10.8)
[2017-02-02 05:24] LABS: HEMOGLOBIN 9.7 g/dL (13.5-17.5); RBC 3.28 10x6/uL (4.20-6.10)
[2017-02-02 05:25] LABS: HEMATOCRIT 27.8 % (42.0-54.0)
[2017-02-02 05:27] LABS: INR 2.11 (0.85-1.17); PROTIME 23.7 SECONDS (11.6-15.0)
[2017-02-02 05:28] LABS: CALCIUM 8.6 mg/dL (8.5-10.1); CARBON DIOXIDE 21.7 mmol/L (21.0-32.0); CREATININE - SERUM 2.8 mg/dL (0.6-1.3); POTASSIUM - SERUM 3.7 mmol/L (3.5-5.1)
--- NOTE | 2017-02-02 07:00 | NUR ---
REC'D REPORT AND RESUMED CARE, TRACH TO VENTILATION AND SECURED, VENT SETTING WITH 50% FIO2, AC RATE OF 20, ORAL CARE AND SUCTION COMPLETED, RIGHT SC CVL WITH CVP, ZEROED, 19, PROPOFAL INFUSING AT 20 MCG, NS AT KVE, AND BICARB GTT AT 50 CC/HR, PEG TUBE TO GRAVITY WITH THICK GREEN DRAINAGE TO BAG, MALONE TO GRAVITY WITH CONCENTRATED SUZE DRAINAGE TO BAG, B/L WRIST RESTRAINTS IN USE, CONTACT ISOLATION IN USE, OPENS EYES DOES NOT FOLLOW COMMANDS, PEDAL PULSES VIA DOPPLER, ASSESSMENT COMPLETE PER FLOWSHEET, VSS, WILL CONTINUE WITH POC
--- NOTE | 2017-02-02 09:00 | NUR ---
AM MEDS GIVEN PER MAR AND PROTOC, NO VISITORS AT THIS TIME
--- NOTE | 2017-02-02 10:01 | NUR ---
Nutrition follow-up: Pt remains intubated, sedated PEG tube placed; pt now with GI bleed and NPO suspected esophageal variceal disease +BM Labs reviewed RDN following.
--- NOTE | 2017-02-02 11:00 | NUR ---
NO ACUTE CHANGE FROM -PREVIOUS ASSESSMENT, VSS, INCONTINENT OF STOOL, BATH AND LINEN CHANGE
--- NOTE | 2017-02-02 12:15 | NUR ---
MARILEE PUENTE HERE FOR EVAL, NO NEW ORDERS AT THIS TIME
--- NOTE | 2017-02-02 13:00 | NUR ---
REPOSITIONED TO RIGHT SIDE WITH PILLOWS PROPPED TO BACK AND HEELS FLOATED
[2017-02-02 14:44] LABS: HEMATOCRIT 27.9 % (42.0-54.0); HEMOGLOBIN 9.7 g/dL (13.5-17.5)
--- NOTE | 2017-02-02 15:00 | NUR ---
ASSESSMENT COMPLETE, SEE FLOWSHEET, VSS, REPOSITIONED TO BACK WITH HEELS FLOATED
--- NOTE | 2017-02-02 17:33 | NUR ---
INCONTINENT OF DIARRHEA STOOL, SKIN CARE AND PARTIAL LINEN CHANGE COMPLETED
--- NOTE | 2017-02-02 18:09 | NUR ---
AT BEDSIDES STATUS UPDATED, VOICES NO OTHER NEEDS A THIS TIME, INTERACTION WITH PATIENT PURCHED LIPS TO KISS BACK
--- NOTE | 2017-02-02 19:30 | NUR ---
RECEIVED CARE OF PT, ASSESSMENT PER FLOWSHEET. PT ON SEDATED ON VENT VIA SIZE 8 TRACH, OPENS EYES SPONTANEOUSLY, FOLLOWS COMMANDS INCONSISTENTLY, CRACKLES AUSCULTATED BILATERALLY WITH DIMINISHED BASES, PPP, PEG TUBE TO GRAVITY WITH GREEN DRAINAGE IN TUBING, MALONE CATH PATENT WITH SUZE URINE, POSITIONED FOR COMFORT, HR SR ON CM, ORAL CARE PROVIDED.
--- NOTE | 2017-02-02 21:05 | NUR ---
NO VISITORS PRESENT AT THIS TIME, POSITIONED FOR COMFORT, ORAL CARE PROVIDED, CONT POC.
--- NOTE | 2017-02-02 22:00 | NUR ---
1 OF 1 UNIT OF PRBC'S INITIATED PER STANDING INFUSION ORDER.
--- NOTE | 2017-02-02 23:15 | NUR ---
REASSESSMENT PER FLOWSHEET, NO SIGNIFICANT CHANGES NOTED AT THIS TIME. PRBC'S CONTINUING TO INFUSE, NO S/S OF ADVERSE REACTION, CONT TO MONITOR.
[2017-02-03] VITALS (21 sets, daily range): BP systolic 72–113; BP diastolic 43–75
--- NOTE | 2017-02-03 01:05 | NUR ---
SCHEDULED H & H DRAWN AFTER PRBC'S FINISHED INFUSING PER ORDER.
[2017-02-03 01:14] LABS: HEMATOCRIT 30.2 % (42.0-54.0); HEMOGLOBIN 10.3 g/dL (13.5-17.5)
--- NOTE | 2017-02-03 03:50 | NUR ---
PT INCONTINENT OF MODERATE AMT OF LIQUID GREEN STOOL WITH BLOODY MUCUS. LINEN CHANGE AND BATH COMPLETED, RT AT BEDSIDE PER FRESH TRACH PROTOCOL, PERICARE PROVIDED, BARRIER CREAM APPLIED TO BUTTOCKS AND SCROTAL AREA, ELEVATED DUE TO EDEMA.
[2017-02-03 04:18] LABS: BASOPHILS 0.8 % (0-2); HEMATOCRIT 30.1 % (42.0-54.0); HEMOGLOBIN 10.5 g/dL (13.5-17.5); IMMATURE GRANULOCYTES 0.8 % (0-5); MCH 29.8 pg (26.0-34.0); MCHC 34.9 g/dL (31.0-37.0); MCV 85.5 fL (80.0-100.0); MEAN PLATELET VOLUME 9.8 fL (7.4-10.4); MONOCYTES 7.6 % (2-11); NEUTROPHILS 83.8 % (40-80); PLATELET COUNT 177 10x3/uL (130-400); RBC 3.52 10x6/uL (4.20-6.10); RDW 18.4 % (11.5-14.5); WBC 15.5 10x3/uL (4.8-10.8)
[2017-02-03 04:42] LABS: INR 2.21 (0.85-1.17); PROTIME 24.6 SECONDS (11.6-15.0)
[2017-02-03 04:43] LABS: ANION GAP 17.3 mmol/L (8-16); CALCIUM 8.4 mg/dL (8.5-10.1); CARBON DIOXIDE 21.5 mmol/L (21.0-32.0); CREATININE - SERUM 2.9 mg/dL (0.6-1.3); POTASSIUM - SERUM 3.8 mmol/L (3.5-5.1)
--- NOTE | 2017-02-03 05:15 | NUR ---
AM LABS REVIEWED, NOTHING TO TREAT PER ELECTROLYTE PROTOCOL.
--- NOTE | 2017-02-03 07:00 | NUR ---
REC'D CARE OF PT. SEDATED ON VENT.
--- NOTE | 2017-02-03 09:00 | NUR ---
NO VISITORS. REMAINS ON VENT. VSS.
--- NOTE | 2017-02-03 09:17 | NUR ---
DR. CARBONE OBTAINED PHONE CONSENT WITNESSED BY ME FOR BRONCHOSCOPY.
--- NOTE | 2017-02-03 09:46 | NUR ---
UNEVENTFUL BRONCH PERFORMED BY DR. RESENDIZ.
--- NOTE | 2017-02-03 11:08 | NUR ---
FLUSHED G-TUBE WITH 20CC H2O BEFORE AND AFTER MEDS.
--- NOTE | 2017-02-03 12:44 | NUR ---
FAMILY AT BEDSIDE. UPDATED.
[2017-02-03 13:46] LABS: HEMATOCRIT 29.6 % (42.0-54.0); HEMOGLOBIN 10.1 g/dL (13.5-17.5)
--- NOTE | 2017-02-03 14:07 | NUR ---
H&H VALUES WITHIN ESTABLISHED PARAMETERS. NO BLOOD NEEDED.
[2017-02-03 15:54] LABS: HEMATOCRIT 25.6 % (42.0-54.0); HEMOGLOBIN 8.8 g/dL (13.5-17.5); MCH 29.5 pg (26.0-34.0); MCHC 34.4 g/dL (31.0-37.0); MCV 85.9 fL (80.0-100.0); MEAN PLATELET VOLUME 9.8 fL (7.4-10.4); RBC 2.98 10x6/uL (4.20-6.10); RDW 18.4 % (11.5-14.5); WBC 17.1 10x3/uL (4.8-10.8)
--- NOTE | 2017-02-03 16:00 | NUR ---
HAD 600CC BRIGHT RED BLOOD AND BLOOD CLOTS PUDDLED BETWEEN LEGS FROM RECTUM AND WHITE PADS X2 COMPLETELY SATURATED. STAT H&H ORDERED. DR. GOMEZ NOTIFIED AND HE IS COMING TO SPEAK WITH FAMILY.
[2017-02-03 16:08] LABS: APTT 49.9 SECONDS (22.8-39.4); INR 2.81 (0.85-1.17); PROTIME 29.8 SECONDS (11.6-15.0)
--- NOTE | 2017-02-03 16:11 | NUR ---
DR. KT SAN.
--- NOTE | 2017-02-03 16:13 | NUR ---
SPOKE WITH DR. MERAZ. UPDATED ON RECTAL BLEEDING. BLOOD WILL BE TRANSFUSED PER DR. MERAZ'S SS.RBC TO BE ORDERED AND IR CONTACTED. SPOKE WITH ILIANA PISANO AND HE IS CONTACTING IR AND ASKING THEM TO CALL DR. MERAZ PER HER REQUEST.
--- NOTE | 2017-02-03 16:41 | NUR ---
ALL LINENS CHANGED. BLOOD VISIBLE COMING FROM RECTUM. BATHED.
--- NOTE | 2017-02-03 16:41 | NUR ---
MARY RT AT BEDSIDE MANAGING FRESH TRACH WHILE TURNING AND BATHING.
--- NOTE | 2017-02-03 17:25 | NUR ---
2 OF 2 PRBC BEING TRANSFUSED VIA PRESSURE BAG PER DR. MERAZ.
--- NOTE | 2017-02-03 17:27 | NUR ---
RBC SCAN HAS BEEN CANCELLED BY FAMILY AFTER DR. MERAZ AND DR. GOMEZ UPDATED FAMILY.
--- NOTE | 2017-02-03 18:04 | NUR ---
FAMILY AT BEDSIDE. UPDATED.
--- NOTE | 2017-02-03 18:44 | NUR ---
FAMILY HAS DECIDED TO TERMINALLY EXTUBATE. DR. RESENDIZ CALLED AND TERMINAL EXTUBATION ORDERS REC'D .
--- NOTE | 2017-02-03 19:30 | NUR ---
RESUMED CARE OF PT, ASSESSMENT PER FLOWSHEET. PT VENTILATED VIA SIZE 8 TRACH, RESPONDS TO STIMULI BY WITHDRAWING, DOES NOT FOLLOW COMMANDS, PPP, PEG TUBE TO GRAVITY WITH GREEN DRAINAGE NOTED, EDEMA NOTED TO SCROTUM AND ALL EXTREMITITES, HR SR AT A RATE OF 79, CRACKLES AUSCULTATED BILATERALLY WITH DIMINISHED BASES. POSITIONED FOR COMFORT, ORAL CARE AND SUCTIONING PROVIDED.
--- NOTE | 2017-02-03 20:00 | NUR ---
PT EXTUBATED TO 30% TRACH COLLAR PER TERMINAL EXTUBATION ORDERS, ORAL CARE AND SUCTIONING PROVIDED.
--- NOTE | 2017-02-03 20:05 | NUR ---
PT FAMILY AT BEDSIDE, DENY ANY NEEDS AT THIS TIME.
--- NOTE | 2017-02-03 20:43 | NUR ---
FILIPE OLVERA NOTIFIED, RECEIVED REF # [id number] AND INSTRUCTED TO CALL BACK UPON CARDIAC .
--- NOTE | 2017-02-03 22:19 | NUR ---
PRN MORPHINE 4 MG ADMINISTERED VIA SIVP PER MD ORDER AND PT FAMILY REQUEST FOR DISCOMFORT, WILL MONITOR, FAMILY REMAINING AT BEDSIDE.
--- NOTE | 2017-02-03 23:56 | NUR ---
ATTEMPTED TO CONTACT PT , ANDREA AT [phone], UNABLE TO LEAVE VOICEMAIL.
--- NOTE | 2017-02-04 01:12 | NUR ---
PT INCONTINENT OF APPROXIMATELY 1.5-2L OF BRIGHT RED BLOOD PER RECTUM WITH SEVERAL LARGE CLOTS. COMPLETE LINEN CHANGE AND PERICARE DONE, PT TOLERATED WITHOUT DIFFICULTY.
--- NOTE | 2017-02-04 01:26 | NUR ---
AIR HUNGER NOTED, PRN MORPHINE 4 MG ADMINISTERED VIA SIVP PER FAMILY REQUEST AND MD ORDER. WILL MONITOR, FAMILY AT BEDSIDE.
[2017-02-04 03:00] VITALS: BP 74/44
--- NOTE | 2017-02-04 03:30 | NUR ---
PT POSITIONED FOR COMFORT, FAMILY AT BEDSIDE, DENY ANY NEEDS AT THIS TIME, WILL CONT POC.
--- NOTE | 2017-02-04 04:08 | NUR ---
4 MG MORPHINE ADMINISTERED VIA SIVP PER PRN MD ORDER FOR AIR HUNGER, WILL MONITOR.
--- NOTE | 2017-02-04 05:54 | NUR ---
4 MG MORPHINE ADMINISTERED VIA SIVP FOR AIR HUNGER. FAMILY REMAINS AT BEDSIDE, CONT TO MONITOR.
[2017-02-04 07:00] VITALS: BP 62/37
--- NOTE | 2017-02-04 07:00 | NUR ---
REC'D CARE OF PT., RR 8 AND LABORED. MORPHINE BEING GIVEN BY GRAIN BROKER RN.
--- NOTE | 2017-02-04 07:45 | NUR ---
FAMILY GOES TO [place] TO EAT. EXCEPT STAYS IN ROOM.
--- NOTE | 2017-02-04 07:50 | NUR ---
I TOLD SHE NEEDS TO GET OTHER FAMILY MEMBERS.
--- NOTE | 2017-02-04 07:50 | NUR ---
ASYSTOLE ON CM.
--- NOTE | 2017-02-04 07:59 | NUR ---
FAMILY AT BEDSIDE.
--- NOTE | 2017-02-04 08:08 | NUR ---
CALLED DR. GOMEZ AND UPDATED THAT PT. HAD . HE IS CALLING ER DOC TO PRONOUNCE.
--- NOTE | 2017-02-04 08:22 | NUR ---
PRONOUNCED BY VERONA GRANT. SEE RECORD OF .
--- NOTE | 2017-02-04 08:30 | NUR ---
CALLED [facility] AT [phone] AND SPOKE WITH LUCILLE TO BUS REPAIR SUPERVISOR PER FAMILY REQUEST.
--- NOTE | 2017-02-04 08:53 | NUR ---
ILIANA GOETZ HS NOTIFIED OF .
[2017-02-06 17:07] LABS: ACID FAST SMEAR Negative (()); AFB SPECIMEN PROCESSING Concentration (())
[2017-02-07 16:11] LABS: FUNGUS STAIN Final report (())
--- NOTE | 2017-02-09 16:08 | NUR ---
Per CMS protocol, restraint report logged into data base.
[2017-02-13 10:17] LABS: FUNGUS CULTURE RESULT 1 Candida albicans (())
[2017-02-19 13:11] LABS: FUNGUS MYCOLOGY CULTURE Final report (())
[2017-03-05 19:10] LABS: FUNGUS MYCOLOGY CULTURE Final report (())
== END 2017-02-04 10:02 | DRG 4 ==
LOC: D.ER 05:30 → D.ICU 07:30
PROVIDERS: Emergency Medicine; Family Medicine; Internal Medicine Gastroenterology; Internal Medicine Pulmonary Disease; ADMIT Family Medicine Adult Medicine
PROC: 5A1955Z Respiratory Ventilation, Greater than 96 Consecutive Hours (ICD-10-PCS; 2017-01-19)
PROC: 0B113F4 Bypass Trachea to Cutaneous with Tracheostomy Device, Percutaneous Approach (ICD-10-PCS; 2017-01-19)
PROC: 0T9B70Z Drainage of Bladder with Drainage Device, Via Natural or Artificial Opening (ICD-10-PCS; 2017-01-19)
PROC: 0D9670Z Drainage of Stomach with Drainage Device, Via Natural or Artificial Opening (ICD-10-PCS; 2017-01-19)
PROC: 0BH17EZ Insertion of Endotracheal Airway into Trachea, Via Natural or Artificial Opening (ICD-10-PCS; 2017-01-19)
PROC: 02HV33Z Insertion of Infusion Device into Superior Vena Cava, Percutaneous Approach (ICD-10-PCS; 2017-01-19)
PROC: 0D598ZZ Destruction of Duodenum, Via Natural or Artificial Opening Endoscopic (ICD-10-PCS; principal; 2017-01-19 14:00)
PROC: 0BB78ZX Excision of Left Main Bronchus, Via Natural or Artificial Opening Endoscopic, Diagnostic (ICD-10-PCS; 2017-01-23)
PROC: 0BB38ZX Excision of Right Main Bronchus, Via Natural or Artificial Opening Endoscopic, Diagnostic (ICD-10-PCS; 2017-01-23)
PROC: 0DH63UZ Insertion of Feeding Device into Stomach, Percutaneous Approach (ICD-10-PCS; 2017-01-30)
PROC: 0BJ08ZZ Inspection of Tracheobronchial Tree, Via Natural or Artificial Opening Endoscopic (ICD-10-PCS; 2017-01-31)
PROC: 0BB78ZX Excision of Left Main Bronchus, Via Natural or Artificial Opening Endoscopic, Diagnostic (ICD-10-PCS; 2017-02-03)
PROC: 0BB38ZX Excision of Right Main Bronchus, Via Natural or Artificial Opening Endoscopic, Diagnostic (ICD-10-PCS; 2017-02-03)
DX: A41.02 Sepsis due to Methicillin resistant Staphylococcus aureus (principal); J96.21 Acute and chronic respiratory failure with hypoxia; K85.90 Acute pancreatitis without necrosis or infection, unspecified; G93.41 Metabolic encephalopathy; J69.0 Pneumonitis due to inhalation of food and vomit; J15.6 Pneumonia due to other Gram-negative bacteria; K92.2 Gastrointestinal hemorrhage, unspecified; D62 Acute posthemorrhagic anemia; K76.6 Portal hypertension; K22.10 Ulcer of esophagus without bleeding; G93.1 Anoxic brain damage, not elsewhere classified; N17.9 Acute kidney failure, unspecified; J98.11 Atelectasis; T17.590A Other foreign object in bronchus causing asphyxiation, initial encounter; J44.9 Chronic obstructive pulmonary disease, unspecified; F10.10 Alcohol abuse, uncomplicated; L85.9 Epidermal thickening, unspecified; Z66 Do not resuscitate; K31.819 Angiodysplasia of stomach and duodenum without bleeding; K72.90 Hepatic failure, unspecified without coma; N18.9 Chronic kidney disease, unspecified; D69.6 Thrombocytopenia, unspecified; E88.09 Other disorders of plasma-protein metabolism, not elsewhere classified; K31.89 Other diseases of stomach and duodenum; B18.2 Chronic viral hepatitis C; K21.9 Gastro-esophageal reflux disease without esophagitis; N40.0 Benign prostatic hyperplasia without lower urinary tract symptoms; Z87.891 Personal history of nicotine dependence